=== PATIENT | male | born 1960 | race Caucasian/White ===

== ENCOUNTER 2016-11-06 16:58 | Inpatient (IN) | payer OTHER ==
[~2016-11-06] VITALS: Ht 182.9 cm; Wt 101.4 kg
[~2016-11-06 16:58] MED LIST: ALLO100 PO; ASPI81CH CHEW; CELE20TA PO; DULC10SU3 RECTAL; ENAL5TAB98 PO; FERR325T PO; LEVE500 PO; MAGO400T PO; METO-309 PO; PERI8.6T PO; PRAV40TA2 PO; PROC90TA PO; PROT40TA PO; PYRI50TA PO; VITA500T4 PO
[2016-11-06 17:01] VITALS: BP 117/72; PULSE 79; RESP 18; TEMP 98.7; O2SAT 96
[2016-11-06] MEDS ORDERED: SODIUM CHLOR 0.9% 1000 ML INJ 1,000 ML IV SCH (17:02)
--- NOTE | 2016-11-06 17:07 | PD ---
HPI Chief Complaint: Abdominal Pain Time Seen by Provider: 17:01 Travel History International Travel<30 days: No Contact w/Intl Traveler<30days: No Traveled to known affect area: No History of Present Illness HPI 56-year-old male [facility] patient with history of hypertension, previous stroke, [place], presents to the ER today because he is having right upper quadrant abdominal pains. He denies any nausea, vomiting, fevers, chest pains, shortness of breath, or any other symptoms. Modifying Factors: None Associated Signs & Symptoms: Right upper quadrant abdominal pain Risk Factors: None PFSH Past Medical History Autoimmune Disease: No Blood Disorders: No Anxiety: Yes Depression: Yes Heart Rhythm Problems: No Cancer: No Cardiovascular Problems: Yes High Cholesterol: Yes Chest Pain: No Congestive Heart Failure: No Cerebrovascular Accident: Yes (tia x 4, CVAX1, cerebral hemorrhage) Diabetes: No Diminished Hearing: No Endocrine: No Gastrointestinal Disorders: Yes GERD: Yes Genitourinary: Yes (CHRONIC RENAL INSUFF) Headaches: Yes Hepatitis: No Hiatal Hernia: No Hypertension: Yes (noncompliant with meds) Immune Disorder: No Implanted Vascular Access Dvce: No Kidney Stones: No Musculoskeletal: No Neurologic: Yes Psychiatric: Yes Reproductive: No Respiratory: No Immunizations Current: No Migraines: No Myocardial Infarction: No Renal Failure: No Seizures: Yes Sickle Cell Disease: No Thyroid Disease: No Ulcer: No PNEUMOCCOCAL Vaccine (Year): 2 Past Surgical History Abdominal Surgery: Yes (CHOLECYSTECTOMY) AICD: No Appendectomy: No Arteriovenous Shunt: No Cardiac Surgery: No Cholecystectomy: Yes Ear Surgery: No Endocrine Surgery: No Eye Surgery: No Genitourinary Surgery: No Insulin Pump: No Joint Replacement: No Neurologic Surgery: No Oral Surgery: No Pacemaker: No Thoracic Surgery: No Tonsillectomy: Yes Other Surgery: Yes (left wrist) Social History Alcohol Use: No Tobacco Use: No Substance Use: No Allergies-Medications (Allergen,Severity, Reaction): Coded Allergies: *MDRO Multi-Drug Resistant Organism (Verified Allergy, Unknown, 11/06/16) MRSA back wound 2009. Positive MRSA surveillance screen 01/2014. Negative MRSA surveillance screens 09/2014. MRSA PCR Screen negative 04/07/15. Reported Meds & Prescriptions Reported Meds & Active Scripts Active Magox (Magnesium Oxide) 400 Mg Tab 400 Mg PO DAILY Procardia XL (Nifedipine) 90 Mg Tab 90 Mg PO DAILY Celexa (Citalopram Hydrobromide) 20 Mg Tab 20 Mg PO DAILY Dulcolax Supp (Bisacodyl) 10 Mg Supp 10 Mg RECTAL DAILY PRN Keppra (Levetiracetam) 500 Mg Tab 500 Mg PO BID Lopressor (Metoprolol Tartrate) 50 Mg Tab 25 Mg PO BID Kimber-Colace (Sennosides-Docusate Sodium) 8.6-50 Mg Tab 2 Tab PO BID Pravastatin 40 Mg Tab 40 Mg PO DAILY Pyridoxine (Pyridoxine HCl) 50 Mg Tab 50 Mg PO DAILY Vasotec (Enalapril Maleate) 5 Mg Tab 5 Mg PO DAILY Protonix (Pantoprazole Sodium) 40 Mg Tab 40 Mg PO DAILY Ferrous Sulfate 325 Mg Tab 325 Mg PO DAILY Vitamin B-12 (Cyanocobalamin) 500 Mcg Tab 500 Mcg PO DAILY Zyloprim (Allopurinol) 100 Mg Tab 100 Mg PO DAILY Reported Tramadol (Tramadol HCl) 50 Mg Tab 50 Mg PO Q4H PRN Aspirin 81 Mg Chew 81 Mg CHEW DAILY Review of Systems Except as stated in HPI: all other systems reviewed are Neg Physical Exam Narrative GENERAL: Well-nourished, well-developed middle age white male patient in no acute distress. Awake, alert, oriented 3 and able to answer questions. SKIN: Warm and dry. HEAD: Normocephalic. EYES: No scleral icterus. No injection or drainage. NECK: Supple, trachea midline. CARDIOVASCULAR: Regular rate and rhythm without murmurs, gallops, or rubs. RESPIRATORY: Breath sounds equal bilaterally. No accessory muscle use. GASTROINTESTINAL: Abdomen soft, right upper quadrant tenderness without guarding or rebound, nondistended. MUSCULOSKELETAL: No cyanosis, or edema. BACK: Nontender without obvious deformity. No CVA tenderness. Data Data Last Documented VS Vital Signs Date Time Temp Pulse Resp B/P Pulse Ox O2 Delivery O2 Flow Rate FiO2 11/06/16 17:14 94 11/06/16 17:01 98.7 79 18 117/72 Orders Complete Blood Count With Diff (11/06/16 17:02) Comprehensive Metabolic Panel (11/06/16 17:02) Lipase (11/06/16 17:02) Prothrombin Time / Inr (Pt) (11/06/16 17:02) Act Partial Throm Time (Ptt) (11/06/16 17:02) Urinalysis - C+S If Indicated (11/06/16 17:02) Iv Access Insert/Monitor (11/06/16 17:02) Ecg Monitoring (11/06/16 17:02) Oximetry (11/06/16 17:02) Morphine Inj (Morphine Inj) (11/06/16 17:15) Ondansetron Inj (Zofran Inj) (11/06/16 17:15) Sodium Chlor 0.9% 1000 Ml Inj (Ns 1000 M (11/06/16 17:02) Sodium Chloride 0.9% Flush (Ns Flush) (11/06/16 17:15) Electrocardiogram (11/06/16 17:02) Chest, Single Ap (11/06/16 17:02) Lactic Acid Sepsis Protocol (11/06/16 18:23) Blood Culture (11/06/16 18:23) Piperacil-Tazo 4.5 Gm Premix (Zosyn 4.5 (11/06/16 18:23) Sodium Chlor 0.9% 1000 Ml Inj (Ns 1000 M (11/06/16 18:23) Ct Abd/Pel W/O Iv Contrast (11/06/16 17:02) Labs Laboratory Tests Test 11/06/16 17:30 White Blood Count 47.4 TH/MM3 Red Blood Count 4.92 MIL/MM3 Hemoglobin 13.7 GM/DL Hematocrit 42.6 % Mean Corpuscular Volume 86.6 FL Mean Corpuscular Hemoglobin 28.0 PG Mean Corpuscular Hemoglobin 32.3 % Concent Red Cell Distribution Width 15.9 % Platelet Count 383 TH/MM3 Mean Platelet Volume 8.2 FL Neutrophils (%) (Auto) 90.8 % Lymphocytes (%) (Auto) 1.9 % Monocytes (%) (Auto) 7.2 % Eosinophils (%) (Auto) 0.0 % Basophils (%) (Auto) 0.1 % Neutrophils # (Auto) 43.1 TH/MM3 Lymphocytes # (Auto) 0.9 TH/MM3 Monocytes # (Auto) 3.4 TH/MM3 Eosinophils # (Auto) 0.0 TH/MM3 Basophils # (Auto) 0.0 TH/MM3 CBC Comment AUTO DIFF Differential Total Cells 100 Counted Neutrophils % (Manual) 87 % Lymphocytes % 5 % Monocytes % 8 % Neutrophils # (Manual) 41.2 TH/MM3 Differential Comment FINAL DIFF MANUAL Platelet Estimate HIGH Platelet Morphology Comment NORMAL Red Cell Morphology Comment NORMAL Prothrombin Time 13.4 SEC Prothromb Time International 1.2 RATIO Ratio Activated Partial 30.8 SEC Thromboplast Time Sodium Level 134 MEQ/L Potassium Level 4.4 MEQ/L Chloride Level 100 MEQ/L Carbon Dioxide Level 23.5 MEQ/L Anion Gap 11 MEQ/L Blood Urea Nitrogen 19 MG/DL Creatinine 2.06 MG/DL Estimat Glomerular Filtration 33 ML/MIN Rate Random Glucose 126 MG/DL Calcium Level 8.8 MG/DL Total Bilirubin 1.2 MG/DL Aspartate Amino Transf 28 U/L (AST/SGOT) Alanine Aminotransferase 41 U/L (ALT/SGPT) Alkaline Phosphatase 159 U/L Total Protein 7.9 GM/DL Albumin 3.3 GM/DL Lipase 74 U/L [facility] Medical Decision Making Medical Screen Exam Complete: Yes Emergency Medical Condition: Yes Medical Record Reviewed: Yes Interpretation(s) Laboratory Tests Test 11/06/16 17:30 White Blood Count 47.4 TH/MM3 (4.0-11.0) Neutrophils (%) (Auto) 90.8 % (16.0-70.0) Lymphocytes (%) (Auto) 1.9 % (9.0-44.0) Neutrophils # (Auto) 43.1 TH/MM3 (1.8-7.7) Lymphocytes # (Auto) 0.9 TH/MM3 (1.0-4.8) Monocytes # (Auto) 3.4 TH/MM3 (0-0.9) Neutrophils % (Manual) 87 % (16-70) Lymphocytes % 5 % (9-44) Neutrophils # (Manual) 41.2 TH/MM3 (1.8-7.7) Platelet Estimate HIGH (NORMAL) Prothrombin Time 13.4 SEC (9.8-11.6) Activated Partial 30.8 SEC Thromboplast Time (24.3-30.1) Sodium Level 134 MEQ/L (136-145) Blood Urea Nitrogen 19 MG/DL (7-18) Creatinine 2.06 MG/DL (0.60-1.30) Estimat Glomerular Filtration 33 ML/MIN (>89) Rate Random Glucose 126 MG/DL (74-106) Total Bilirubin 1.2 MG/DL (0.2-1.0) Alkaline Phosphatase 159 U/L (45-117) Albumin 3.3 GM/DL (3.4-5.0) Last 24 hours Impressions Abdomen/Pelvis CT 11/06/16 1702 Signed Impressions: Service Date/Time: Sunday, November 06, 2016 18:37 - CONCLUSION: 1. Dilated gallbladder with cholelithiasis and inflammatory changes likely acute cholecystitis. 2. Bibasilar densities likely atelectasis. Trey Watt MD Differential Diagnosis Right upper quadrant abdominal painscholecystitis versus hepatitis versus gastroenteritis versus lower lobe pneumonia versus musculoskeletal Narrative Course Lab work indicates significant leukocytosis. IV antibiotics are initiated after cultures are done. Sepsis protocol initiated. CT is done showing what appears to be in acute cholecystitis. Case was briefly discussed with Dr. Souza who states that he suspect a cholangitis and that the patient is septic and that he will need IR drainage of the gallbladder, is not an appropriate surgical candidate at this time. He recommends medical admission as well. Case is discussed with Dr. Lawson of interventional radiology who agrees to come in to do an INR drainage. Aggregate critical care time was 30 minutes. Time to perform other separately billable procedures was not included in the critical care time. My time did not include minutes spent treating any other patients simultaneously or on activities that did not directly contribute to the patient's treatment. The services I provided to this patient were to treat and/or prevent clinically significant deterioration that could result in: Worsening sepsis, septic shock, I provided critical care services requiring my management, as noted below: Chart data review, documentation time, medication orders and management, vital sign assessments/reviewing monitor data, ordering and reviewing lab tests, ordering and interpreting/reviewing x-rays and diagnostic studies, care of the patient and discussion of the patient with the admitting physicians. Diagnosis Primary Impression: SEPSIS, UNSPECIFIED ORGANISM Additional Impressions: UNSPECIFIED ABDOMINAL PAIN ACUTE CHOLECYSTITIS Admitting Information Admitting Physician Requests: Admit Samuel Warren MD Nov 06, 2016 17:07
[2016-11-06] MEDS ORDERED: TRAM50TA PO (17:13)
[2016-11-06 17:14] VITALS: O2SAT 94
[2016-11-06] MEDS ORDERED: MORPHINE SULFATE 4 MG/ML INJ IV PUSH ONE (17:15)
[2016-11-06] MEDS ORDERED: SODIUM CHLORIDE 0.9% FLUSH 5 ML FLUSH IVF PRN (17:15)
[2016-11-06] MEDS ORDERED: ONDANSETRON HCL 4 MG/2 ML VIAL IVP ONE (17:15)
[2016-11-06 17:56] LABS: AUTOMATED NEUTROPHIL # 43.1 TH/MM3 (1.8-7.7); BASOPHIL % 0.1 % (0.0-2.0); HEMATOCRIT 42.6 % (39.0-51.0); LYMPH % 1.9 % (9.0-44.0); LYMPHOCYTE # 0.9 TH/MM3 (1.0-4.8); MEAN CELL VOLUME 86.6 FL (80.0-100.0); MEAN CORPUSCULAR HGB CONC 32.3 % (32.0-36.0); MONO % 7.2 % (0.0-8.0); NEUT % 90.8 % (16.0-70.0); PLATELET COUNT 383 TH/MM3 (150-450); RED BLOOD COUNT 4.92 MIL/MM3 (4.50-5.90); RED CELL DISTRIBUTION WIDTH 15.9 % (11.6-17.2); WHITE BLOOD COUNT 47.4 TH/MM3 (4.0-11.0)
[2016-11-06 17:58] LABS: HEMO FLAGS AUTO DIFF
--- NOTE | 2016-11-06 18:01 | RADRPT ---
EXAM DATE/TIME: 11/06/2016 17:08 [facility] COMPARISON: CHEST SINGLE AP, May 21, 2016, 15:40. INDICATIONS : Short of breath. MEDICAL HISTORY : Hypertension. CVA. SURGICAL HISTORY : None. ENCOUNTER: Initial ACUITY: 1 day PAIN SCORE: Non-responsive. LOCATION: Bilateral chest FINDINGS: The lungs are underaerated but clear. Heart and pulmonary vascularity are normal. Portions of the [place] skeleton visualized are unremarkable. CONCLUSION: Underaerated otherwise negative. Pedrito Snow MD FACR on November 06, 2016 at 17:51 Board Certified Radiologist. This report was verified electronically.
[2016-11-06 18:07] LABS: APTT (PATIENT) 30.8 SEC (24.3-30.1); INTERNATIONAL NORMALIZED RATIO 1.2 RATIO; PROTHROMBIN TIME - PATIENT 13.4 SEC (9.8-11.6)
[2016-11-06 18:19] LABS: ANION GAP 11 MEQ/L (5-15); AST (GOT) 28 U/L (15-37); BICARBONATE 23.5 MEQ/L (21.0-32.0); BLOOD UREA NITROGEN 19 MG/DL (7-18); CHLORIDE 100 MEQ/L (98-107); GLOMERULAR FILTRATION RATE 33 ML/MIN (>89); POTASSIUM 4.4 MEQ/L (3.5-5.1); SODIUM (NA) 134 MEQ/L (136-145)
[2016-11-06 18:23] LABS: ALKALINE PHOSPHATASE 159 U/L (45-117); ALT (GPT) 41 U/L (12-78); TOTAL BILIRUBIN ADULT 1.2 MG/DL (0.2-1.0)
[2016-11-06] MEDS ORDERED: PIPERACIL-TAZO 4.5 GM PREMIX 100 ML IV STA (18:23)
[2016-11-06] MEDS ORDERED: SODIUM CHLOR 0.9% 1000 ML INJ 1,000 ML IV ONE (18:23)
[2016-11-06 18:30] LABS: NEUTROPHIL # MANUAL DIFF 41.2 TH/MM3 (1.8-7.7); POLYS (SEG NEUTROPHILS) 87 % (16-70); WBC DIFF SAMPLE 100
[2016-11-06 18:31] LABS: PLATELET ESTIMATE SMEAR HIGH (NORMAL); PLATELET MORPHOLOGY NORMAL (NORMAL); SCAN/DIFF FINAL DIFF MANUAL
--- NOTE | 2016-11-06 18:56 | RADRPT ---
EXAM DATE/TIME: 11/06/2016 18:37 [facility] COMPARISON: CT ABDOMEN & PELVIS W/O CONTRAST, March 19, 2013, 12:50. INDICATIONS : Right upper quadrant pain. ORAL CONTRAST: No oral contrast ingested. RADIATION DOSE: 17.47 CTDIvol (mGy) MEDICAL HISTORY : Cardiovascular disease. Hypertension. Renal insufficiency. SURGICAL HISTORY : Cholecystectomy. ENCOUNTER: Initial ACUITY: 1 day PAIN SCALE: Non-responsive LOCATION: abdomen/pelvis TECHNIQUE: Volumetric scanning of the abdomen and pelvis was performed. Using automated exposure control and ad justment of the mA and/or kV according to patient size, radiation dose was kept as low as reasonably achievable to obtain optimal diagnostic quality images. FINDINGS: LOWER LUNGS: Minimal bibasilar densities. LIVER: Homogeneous density without lesion. There is no dilation of the biliary tree. Dilated gallbladder wi th inflammatory changes. A few gallstones are seen. There is pericholecystic fluid SPLEEN: Normal size without lesion. PANCREAS: Within normal limits. KIDNEYS: Normal in size and shape. There is no mass, stone, or hydronephrosis. ADRENAL GLANDS: Within normal limits. VASCULAR: There is no aortic aneurysm. BOWEL/MESENTERY: The stomach, small bowel, and colon demonstrate no acute abnormality. There is no free intraperitone al air or fluid. ABDOMINAL WALL: Within normal limits. RETROPERITONEUM: There is no lymphadenopathy. BLADDER: No wall thickening or mass. REPRODUCTIVE: Within normal limits. INGUINAL: There is no lymphadenopathy or hernia. MUSCULOSKELETAL: Within normal limits for patient age. CONCLUSION: 1. Dilated gallbladder with cholelithiasis and inflammatory changes likely acute cholecystitis. 2. Bibasilar densities likely atelectasis. Trey Watt MD on November 06, 2016 at 18:52 Board Certified Radiologist. This report was verified electronically.
[2016-11-06] MEDS ORDERED: DEXTROSE 50% IN WATER 50 ML VIAL(D50) IV PUSH PRN (19:30)
[2016-11-06] MEDS ORDERED: RESP: ALBUTEROL 2.5 MG/IPRATROPIUM 0.5 MG NEB (PRN) INH ×2 (19:30→21:30)
[2016-11-06 20:00] VITALS: BP 126/74; PULSE 68; RESP 16; O2SAT 96
[2016-11-06] MEDS ORDERED: fentaNYL CITRATE 250 MCG/5 ML AMP ONE (21:20)
[2016-11-06] MEDS ORDERED: MIDAZOLAM HCL 5 MG/5 ML VIAL ONE (21:20)
--- NOTE | 2016-11-06 21:24 | HHI.PR ---
Subjective Remarks I have discussed the case with Dr. Souza. In brief, this 56yM with leukocytosis, altered mental status, severe sepsis likely from cholangitis with radiographic evidence suggesting this. He is starting to become altered which is likely metabolic encephalopathy from sepsis. It is medically necessary that his obstruction is drained tonight, and thus, it is my opinion that percutaneous cholecystostomy tube placement is urgently medically necessary tonight, even if he is not medically capacitated to receive informed consent. Yonatan Novak MD Nov 06, 2016 21:24
--- NOTE | 2016-11-06 21:24 | HHI.HP ---
[facility] Service Critical Care Medicine Primary Care Physician Aguila Santacruz MD Admission Diagnosis sepsis/acute cholecystitis/cholangitis Diagnosis: Chief Complaint: abdominal pain Travel History International Travel<30 Days: No Contact w/Intl Traveler <30 Da: No Traveled to Known Affected Are: No History of Present Illness This is a 56-year-old male who was brought in from the detention with right upper quadrant abdominal pain. He endorses this abdominal pain as crampy, worse with food. He denied nausea, vomiting, diarrhea, constipation, changes in stool. Fevers, chills, chest pain, shortness of breath. He is not had anything to eat since yesterday. He is slightly somnolent on my evaluation and a very poor historian so additional information is very difficult to obtain. He does have a CT abdomen and pelvis which demonstrates significant gallbladder thickening and concern for cholangitis. Dr. Souza was consulted and agreed with that assessment. IR has been consulted to place for percutaneous cholecystostomy tube. [facility] medicine is consulted to evaluate and manage his sepsis. Review of Systems ROS Limitations: Clinical Condition, Altered Mental Status, Poor Historian Past Family Social History Allergies: Coded Allergies: *MDRO Multi-Drug Resistant Organism (Verified Allergy, Unknown, 11/06/16) MRSA back wound 2009. Positive MRSA surveillance screen 01/2014. Negative MRSA surveillance screens 09/2014. MRSA PCR Screen negative 04/07/15. Past Medical History The patient is somnolent and slightly altered. A complete past medical history is unobtainable. Per chart review: Anxiety Depression Hyperlipidemia TIA 4 CVA 1 Cerebral hemorrhage GERD Chronic renal insufficiency, unknown stage Headaches Hypertension with medication noncompliance Seizures Past Surgical History The patient's altered mental status and clinical condition make a complete past surgical history unobtainable. Per chart review: The patient reportedly has a prior history of a cholecystectomy. However, CT imaging demonstrates the patient has a gallbladder. Tonsillectomy Left wrist surgery Reported Medications Patient is unable to provide me a complete home medication list due to his altered mental status. Per chart review: Magox (Magnesium Oxide) 400 Mg Tab 400 Mg PO DAILY Procardia XL (Nifedipine) 90 Mg Tab 90 Mg PO DAILY Celexa (Citalopram Hydrobromide) 20 Mg Tab 20 Mg PO DAILY Dulcolax Supp (Bisacodyl) 10 Mg Supp 10 Mg RECTAL DAILY PRN Keppra (Levetiracetam) 500 Mg Tab 500 Mg PO BID Lopressor (Metoprolol Tartrate) 50 Mg Tab 25 Mg PO BID Kimber-Colace (Sennosides-Docusate Sodium) 8.6-50 Mg Tab 2 Tab PO BID Pravastatin 40 Mg Tab 40 Mg PO DAILY Pyridoxine (Pyridoxine HCl) 50 Mg Tab 50 Mg PO DAILY Vasotec (Enalapril Maleate) 5 Mg Tab 5 Mg PO DAILY Protonix (Pantoprazole Sodium) 40 Mg Tab 40 Mg PO DAILY Ferrous Sulfate 325 Mg Tab 325 Mg PO DAILY Vitamin B-12 (Cyanocobalamin) 500 Mcg Tab 500 Mcg PO DAILY Zyloprim (Allopurinol) 100 Mg Tab 100 Mg PO DAILY Reported Tramadol (Tramadol HCl) 50 Mg Tab 50 Mg PO Q4H PRN Aspirin 81 Mg Chew 81 Mg CHEW DAILY Active Ordered Medications See MAR Family History The patient is unable to provide for me if family history due to his altered mental status. It is unlikely to be contributory to his acute illness. Social History A complete social history is unobtainable secondary to the patient's altered mental status. Per chart review: Denied tobacco, alcohol, drugs of abuse. Physical Exam Vital Signs Vital Signs Date Time Temp Pulse Resp B/P Pulse Ox O2 Delivery O2 Flow Rate FiO2 11/06/16 17:14 94 11/06/16 17:01 98.7 79 18 117/72 96 Physical Exam GENERAL: Middle-aged male, lying in bed, mild to moderate distress due to abdominal pain HEENT: Normocephalic. Atraumatic. Pupils equal, round, conjugate, reactive. Mucous membranes are dry. NECK: Obese neck. JVD unable to assess. Trachea is midline. CHEST: Mildly labored respirations. Equal chest rise. Clear to auscultation. CARDIOVASCULAR: Normal rate, regular rhythm. No appreciable murmurs. ABDOMEN: obese, soft, significantly tender to palpation over RUQ. +leo's sign. no guarding. no peritoneal signs. MUSCULOSKELETAL: 1+ peripheral edema. Distal pulses 2+. NEUROLOGICAL: RASS -1. Somnolent but arousable. Follows commands. Laboratory Laboratory Tests Test 11/06/16 11/06/16 17:30 19:35 White Blood Count 47.4 Red Blood Count 4.92 Hemoglobin 13.7 Hematocrit 42.6 Mean Corpuscular Volume 86.6 Mean Corpuscular Hemoglobin 28.0 Mean Corpuscular Hemoglobin 32.3 Concent Red Cell Distribution Width 15.9 Platelet Count 383 Mean Platelet Volume 8.2 Neutrophils (%) (Auto) 90.8 Lymphocytes (%) (Auto) 1.9 Monocytes (%) (Auto) 7.2 Eosinophils (%) (Auto) 0.0 Basophils (%) (Auto) 0.1 Neutrophils # (Auto) 43.1 Lymphocytes # (Auto) 0.9 Monocytes # (Auto) 3.4 Eosinophils # (Auto) 0.0 Basophils # (Auto) 0.0 CBC Comment AUTO DIFF Differential Total Cells 100 Counted Neutrophils % (Manual) 87 Lymphocytes % 5 Monocytes % 8 Neutrophils # (Manual) 41.2 Differential Comment FINAL DIFF MANUAL Platelet Estimate HIGH Platelet Morphology Comment NORMAL Red Cell Morphology Comment NORMAL Prothrombin Time 13.4 Prothromb Time International 1.2 Ratio Activated Partial 30.8 Thromboplast Time Sodium Level 134 Potassium Level 4.4 Chloride Level 100 Carbon Dioxide Level 23.5 Anion Gap 11 Blood Urea Nitrogen 19 Creatinine 2.06 Estimat Glomerular Filtration 33 Rate Random Glucose 126 Calcium Level 8.8 Total Bilirubin 1.2 Aspartate Amino Transf 28 (AST/SGOT) Alanine Aminotransferase 41 (ALT/SGPT) Alkaline Phosphatase 159 Total Protein 7.9 Albumin 3.3 Lipase 74 Lactic Acid Level 1.1 Date/Time Procedure Status Source Growth 11/06/16 19:35 Aerobic Blood Culture Received Blood Peripheral Pending 11/06/16 19:35 Anaerobic Blood Culture Received Blood Peripheral Pending Result Diagram: 11/06/16 1730 11/06/16 1730 Assessment and Plan Assessment and Plan Assessment: This is a 56-year-old male with probable cholangitis and sepsis. The fact that he is not tachycardic is likely due to the fact that he is taking beta blockers. He will go for urgent cholecystostomy tube placement. His mental status may likely be due to sepsis. I'm hopeful that if we successfully drain his cholangitis, he will rapidly improve. For now though he remains critically ill, as cholangitis has a high mortality rate and given the patient' s comorbidities, I'm very concerned may decompensate. Plan by systems: Neurologic: Metabolic encephalopathy Likely secondary to sepsis Frequent neuro checks Avoid long-acting sedating meds Respiratory: Atelectasis Incentive spirometer to bedside Wean oxygen by nasal cannula for goal SPO2 greater than 90% Cardiovascular: Sepsis Maintenance fluids LR 150 cc an hour Maintaining map greater than 65 without the need for vasopressors currently Renal: Acute kidney injury Place Marquez for accurate I's and O's Kidney injury is likely prerenal secondary to sepsis -- Strict I/Os FEN/GI: Acute cholangitis Obesity Intravascular hypovolemia Maintenance fluids as above Nothing by mouth Urgent cholecystostomy tube placement Daily [facility] General surgery consulted: Dr. Souza Heme/ID: Leukocytosis Sepsis Cholangitis Zosyn 3.375 g IV every 8 Follow-up blood cultures Daily CBC Endocrine: Hyperglycemia of critical illness -- SSI, every 6 hours, medium scale Prophylaxis: GI Prophylaxis Protonix 40 mg IV daily 24 hours DVT Prophylaxis -- SCDs Subcutaneous heparin 5000 every 8 Lines: Peripheral IVs Marquez Dispo: Admit to the ICU. This patient remains critically ill with one or more organ systems which are or may become a threat to life. I have spent in excess of 33 minutes discontinuously in the care and management of this patient. This time is exclusive of procedures, and includes, but is not limited to, evaluation of the patient, review of the medical record, discussions with family, consultants, nursing staff, or respiratory therapy, and documentation in the medical record. Code Status Full Code Yonatan Novak MD Nov 06, 2016 21:24
[2016-11-06] MEDS ORDERED: HYDROmorphone HCL PF 1 MG/ML VIAL IV PRN (21:30)
[2016-11-06] MEDS ORDERED: ACETAMINOPHEN 325 MG TAB PO PRN (21:30)
[2016-11-06] MEDS ORDERED: ONDANSETRON HCL 4 MG/2 ML VIAL IV PRN (21:30)
[2016-11-06] MEDS ORDERED: MISCELLANEOUS NURSING INFORMATION XX SCH (21:30)
[2016-11-06] MEDS ORDERED: CHLORHEXIDINE GLUCONATE 2 % 1 PACK (2 CLOTHS) TOP PRN (21:30)
[2016-11-06] MEDS ORDERED: SODIUM CHLORIDE 0.9% FLUSH 5 ML FLUSH IV FLUSH PRN (21:30)
--- NOTE | 2016-11-06 21:32 | PD.RAD ---
Radiology Note Consult for cholecystostomy tube from ED on this 56 year old gentleman with leucocytosis, fever and confusion. CT abdomen and pelvis from earlier this evening shows abnormal gallbladder with nitrogen gallstones, pericholecystic stranding and gallbladder distention concerning for acute cholecystitis. Surgery felt patient was not a viable surgical candidate and asked that IR be consulted. Patient is disoriented x 3. Unable to consent for himself and unable to contact family member or POA. Discussed with ED and Dr. Mathwes. Clinically, Dr. Mathews feels the procedure is medically necessary considering the pts. clinical presentation. Agree from a radiographic standpoint. Will proceed as medically necessary Eron Lawson MD Nov 06, 2016 21:32
[2016-11-06] MEDS ORDERED: LEVOFLOXACIN 500 MG PREMIX INJ 100 ML IV ONE (21:37)
[2016-11-06] MEDS: RESP: ALBUTEROL 2.5 MG/IPRATROPIUM 0.5 MG NEB (SCH) INH (22:00)
--- NOTE | 2016-11-06 22:08 | PD.RAD ---
Post Procedure Progress Note Pre Procedure Diagnosis: (1) Acute cholecystitis due to biliary calculus Post Procedure Diagnosis: (1) Acute cholecystitis due to biliary calculus Procedure Date: Nov 06, 2016 Supervising Radiologist: Eron Lawson Proceduralist/Assist: Octavia Beckman, RT(R)(), Isela Galarza RT(R) Anesthesia: Local, Analgesia, Conscious Sedation Plan of Activity Patient to Unit: Other (ED) Patient Condition: Fair See PACS Report for procedural detail/treatment Drainage Procedure Procedure 1 Imaging Guidance: Fluoroscopy, Ultrasound Procedure Type: Cholecystostomy Procedure: Placement Kazakh: 7 Drainage: [place] drainage Fluid Description: Bilious (dark and thick) Eron Lawson MD Nov 06, 2016 22:08
[2016-11-06 23:03] VITALS: BP 126/76; PULSE 74; RESP 16; O2SAT 95
[2016-11-06] MEDS: HEPARIN SODIUM - SQ 10,000 UNITS/ML VIAL SQ SCH (23:12)
[2016-11-06 23:39] LABS: BLOOD, URINE TRACE (NEG); COMMENT (UR) CULT NOT INDICATED; CULTURE IF INDICATED CULT NOT INDICATED; GLUCOSE,URINE NEG (NEG); KETONE, URINE NEG (NEG); MUCUS URINE FEW /lpf (OCC); NITRITE,URINE NEG (NEG); SQUAMOUS EPITHELIAL CELL URINE <1 /hpf (0-5); URINE COLOR YELLOW (YELLW/STRAW)
[2016-11-07] VITALS (18 sets, daily range): BP systolic 96–124; BP diastolic 51–80; PULSE 65–85; RESP 16–26; TEMP 98.7; O2SAT 93–99
[2016-11-07] MEDS: INSULIN NovoLIN REGULAR SUPPLEMENTAL SCALE SQ SCH ×4 (00:19→18:00)
[2016-11-07] MEDS: RESP: ALBUTEROL 2.5 MG/IPRATROPIUM 0.5 MG NEB (SCH) INH ×4 (03:52→20:50)
[2016-11-07] MEDS: CHLORHEXIDINE GLUCONATE 2 % 1 PACK (2 CLOTHS) TOP SCH (04:00)
[2016-11-07] MEDS: LACTATED RINGER'S 1000 ML INJ 1,000 ML IV SCH ×2 (05:15→11:55)
[2016-11-07] MEDS ORDERED: LACTATED RINGER'S 1000 ML INJ 1,000 ML IV ONE (05:15)
[2016-11-07 05:17] LABS: HEMATOCRIT 35.4 % (39.0-51.0); MEAN CELL VOLUME 87.2 FL (80.0-100.0); MEAN CORPUSCULAR HEMOGLOBIN 28.1 PG (27.0-34.0); MEAN CORPUSCULAR HGB CONC 32.2 % (32.0-36.0); PLATELET COUNT 279 TH/MM3 (150-450); RED BLOOD COUNT 4.06 MIL/MM3 (4.50-5.90); RED CELL DISTRIBUTION WIDTH 16.1 % (11.6-17.2); WHITE BLOOD COUNT 36.5 TH/MM3 (4.0-11.0)
[2016-11-07 05:22] LABS: REVIEW FLAG FINAL
[2016-11-07 05:35] LABS: POTASSIUM 4.5 MEQ/L (3.5-5.1)
[2016-11-07] MEDS: PIPERACIL-TAZO 3.375 GM PREMIX 50 ML IV SCH ×3 (06:30→19:46)
[2016-11-07] MEDS: HEPARIN SODIUM - SQ 10,000 UNITS/ML VIAL SQ SCH ×3 (06:30→19:46)
[2016-11-07] MEDS: SODIUM CHLORIDE 0.9% FLUSH 5 ML FLUSH IV FLUSH SCH ×2 (08:49→19:47)
[2016-11-07] MEDS: DOCUSATE SODIUM 50 MG/SENNA 8.6 MG TAB PO SCH ×2 (08:49→19:47)
--- NOTE | 2016-11-07 17:59 | HHI.CCPN ---
Subjective Remarks/Hospital Course 11/06: This is a 56-year-old male who [facility] with right upper quadrant abdominal pain. He endorses this abdominal pain as crampy , worse with food. He denied nausea, vomiting, diarrhea, constipation, changes in stool. Fevers, chills, chest pain, shortness of breath. He is not had anything to eat since yesterday. He is slightly somnolent on my evaluation and a very poor historian so additional information is very difficult to obtain. He does have a CT abdomen and pelvis which demonstrates significant gallbladder thickening and concern for cholangitis. Dr. Souza was consulted and agreed with that assessment. IR has been consulted to place for percutaneous cholecystostomy tube. [facility] medicine is consulted to evaluate and manage his sepsis. 11/07: Underwent percutaneous cholecystostomy tube placement by interventional radiology on 11/06 . Resting comfortably. His abdominal pain seems to be improving. On 2 L nasal cannula. Objective Vital Signs Date Time Temp Pulse Resp B/P Pulse Ox O2 Delivery O2 Flow Rate FiO2 11/07/16 16:00 68 11/07/16 10:43 95 Nasal Cannula 2.00 11/07/16 08:00 98.7 26 96/51 Result Diagram: 11/07/16 0455 11/07/16 0455 Imaging Last Impressions Abdomen/Pelvis CT 11/06/16 1702 Signed Impressions: Service Date/Time: Sunday, November 06, 2016 18:37 - CONCLUSION: 1. Dilated gallbladder with cholelithiasis and inflammatory changes likely acute cholecystitis. 2. Bibasilar densities likely atelectasis. Trey Watt MD Objective Remarks GENERAL: Middle-aged male, lying in bed, not in any acute distress HEENT: Normocephalic. Atraumatic. Pupils equal, round, conjugate, reactive. Mucous membranes moist NECK: Obese neck. JVD unable to assess. Trachea is midline. CHEST: Mildly labored respirations. Equal chest rise. Clear to auscultation. CARDIOVASCULAR: Normal rate, regular rhythm. No appreciable murmurs. ABDOMEN: obese, soft, significantly tender to palpation over RUQ. +leo's sign. no guarding. no peritoneal signs. MUSCULOSKELETAL: 1+ peripheral edema. Distal pulses 2+. NEUROLOGICAL: Awake and alert, following commands. A/P Assessment and Plan Assessment: This is a 56-year-old male with probable cholangitis/acute cholecystitis and sepsis. The fact that he is not tachycardic is likely due to the fact that he is taking beta blockers. He underwent urgent cholecystostomy tube placement. Plan by systems: Neurologic: Metabolic encephalopathy Likely secondary to sepsis Frequent neuro checks Avoid long-acting sedating meds Respiratory: Atelectasis Incentive spirometer to bedside Wean oxygen by nasal cannula for goal SPO2 greater than 90% Cardiovascular: Sepsis Maintenance fluids D5LR 150 cc an hour Maintaining map greater than 65 without the need for vasopressors currently Renal: Acute kidney injury Place Marquez for accurate I's and O's Kidney injury is likely prerenal secondary to sepsis -- Strict I/Os FEN/GI: Acute cholangitis Obesity Intravascular hypovolemia Maintenance fluids as above Nothing by mouth s/p Urgent cholecystostomy tube placement by IR Daily BMP General surgery consulted: D/W Dr. Souza on 11/07. He will eventually need cholecystectomy. Heme/ID: Leukocytosis Sepsis Cholangitis Zosyn 3.375 g IV every 8 Follow-up blood cultures Daily CBC Endocrine: Hyperglycemia of critical illness -- SSI, every 6 hours, medium scale Prophylaxis: GI Prophylaxis Protonix 40 mg IV daily 24 hours DVT Prophylaxis -- SCDs Subcutaneous heparin 5000 every 8 Lines: Peripheral IVs Marquez We'll consult and transfer to hospitalist service in a.m. for further medical management. Critical care will be signing off. Please reconsult if needed. Other recommendations per general surgery. Mateo Camilo MD Nov 07, 2016 17:59
[2016-11-07] MEDS: DEXTROSE 5%-LACTATED RING INJ 1,000 ML IV SCH (18:00)
--- NOTE | 2016-11-07 18:02 | MB ---
cc: CORAL PATEL M.D. DATE OF CONSULTATION 11/07/16 REASON FOR CONSULTATION Cholangitis. HISTORY OF PRESENT ILLNESS The patient is a 56-year-old male who was brought in from a care home with right upper quadrant abdominal pain that has occurred for the last few days, according to the patient. This was reported as crampy and worse with food. He denies any nausea, vomiting, diarrhea or changes in bowel habits. He also denies any fever or chills. The patient was slightly confused on admission and CT demonstrated significant gallbladder wall thickening with concern for cholangitis. We have been called for management of this patient, but due to his extremely high white count I have concern that the patient was suffering from cholangitis and would need immediate percutaneous cholecystostomy tube. REVIEW OF SYSTEMS Limited due to altered mental status as he is a poor historian. PAST MEDICAL HISTORY 1. 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 Screening surveillance for MRSA was negative in March. Per the patient's previous chart 2. History of anxiety, depression, 3. CVA, TIA x4 4. Hyperlipidemia, 5. GE reflux disease, 6. Chronic renal insufficiency, 7. Headaches 8. Hypertension MEDICATIONS Reported medications are listed in the patient's MAR including 1. Magnesium oxide 400 mg q. day, 2. Procardia 90 mg p.o. daily, 3. Celexa 20 mg daily, 4. Dulcolax 10 mg per rectum as needed, 5. Keppra 500 mg p.o. b.i.d., 6. Lopressor 25 mg b.i.d., 7. Kimber-Colace 2 tablets b.i.d., 8. Pravastatin 40 mg daily 9. Pyridoxine 50 mg daily. 10. Vasotec 5 mg daily, 11. Protonix 40 mg p.o. q. day, 12. Ferrous sulfate 325 mg q. day, 13. Vitamin B12 100 mcg daily 14. Allopurinol 100 mg p.o. daily. 15. Tramadol 50 mg p.o. q.4 h p.r.n. 16. Aspirin 81 mg q. daily. FAMILY HISTORY AND SOCIAL HISTORY Not obtainable due to some confusion. The patient does deny alcohol or tobacco use. PHYSICAL EXAMINATION GENERAL: A male who is somewhat pale. VITAL SIGNS: BP 124/73, pulse 77, respirations 25, 94% saturation on 2 liters nasal cannula HEENT: Sclerae anicteric. Pupils reactive. NECK: Supple. CHEST: Clear to auscultation. CARDIAC: Regular rate and rhythm. ABDOMEN: Soft with some tenderness near the cholecystostomy tube site. There is some bloody draining material in the cholecystostomy tube. The rest of the abdominal exam is benign. The patient reports no other abdominal pain. NEUROLOGIC: Pulses are present. The patient has some slurred speech. He reports he has no residual from his CVA. He is able to lift both arms but has some weakness on the right. LABORATORY DATA WBCs 47.4 down to 36.5 this morning, platelets are 279,000, hemoglobin 11.4. Electrolytes demonstrate BUN and creatinine of 23 and 1.79, bilirubin is 1.2, AST and ALT are normal, alkaline phosphatase is elevated at 159. IMAGING STUDIES CT findings are as indicated above with no dilatation of the biliary tree and dilated gallbladder with inflammatory changes with a few gallstones and pericholecystic fluid. ASSESSMENT Acute cholecystitis with cholangitis. Patient with early sepsis. He has been given fluid resuscitation and is now stable. I had recommended the patient undergo interventional radiology placement of a cholecystostomy tube so that the patient's resuscitation may be completed and he will be stabilized. The patient will likely require cholecystectomy in the next week or so once he has been optimized. I discussed this with the patient this morning and he is in agreement. Thank you, Dr. Lawson, for performing the placement of the cholecystostomy tube expeditiously as the patient is rapidly improving. We will follow with you. MD HILARY Do/ /4:54 PM /5:43 PM
--- NOTE | 2016-11-07 21:10 | EKG ---
Date Performed: 11/06/2016 Time Performed: 18:04:42 PTAGE: 56 years EKG: Sinus rhythm NONSPECIFIC T-WAVE ABNORMALITY BORDERLINE ECG PREVIOUS TRACING : 05/21/2016 17.07 DOCTOR: Christos Baker Interpretating Date/Time 11/07/2016 21:04:51
[2016-11-08] VITALS (14 sets, daily range): BP systolic 124; BP diastolic 72; PULSE 66–86; RESP 25; TEMP 97.8; O2SAT 93–98
[2016-11-08] MEDS: DEXTROSE 5%-LACTATED RING INJ 1,000 ML IV SCH (02:00)
[2016-11-08] MEDS: RESP: ALBUTEROL 2.5 MG/IPRATROPIUM 0.5 MG NEB (SCH) INH ×4 (03:25→21:34)
[2016-11-08] MEDS: CHLORHEXIDINE GLUCONATE 2 % 1 PACK (2 CLOTHS) TOP SCH (04:00)
[2016-11-08] MEDS: PIPERACIL-TAZO 3.375 GM PREMIX 50 ML IV SCH ×3 (05:18→22:00)
[2016-11-08] MEDS: HEPARIN SODIUM - SQ 10,000 UNITS/ML VIAL SQ SCH ×3 (05:18→21:17)
[2016-11-08] MEDS: INSULIN NovoLIN REGULAR SUPPLEMENTAL SCALE SQ SCH ×4 (05:19→18:00)
--- NOTE | 2016-11-08 06:59 | RADRPT ---
EXAM DATE/TIME: 11/08/2016 05:24 [facility] COMPARISON: CHEST SINGLE AP, November 06, 2016, 17:08. INDICATIONS : Shortness of breath. MEDICAL HISTORY : Hypertension. Cardiovascular disease. SURGICAL HISTORY : None. ENCOUNTER: Subsequent ACUITY: 3 days PAIN SCORE: Non-responsive. LOCATION: Bilateral chest FINDINGS: Mild left lung base atelectasis and/or infiltrate is seen. Heart and mediastinum are unremarkable for technique. CONCLUSION: Mild left lung base atelectasis and/or infiltrate is seen. Faiza Vasquez MD on November 08, 2016 at 6:57 Board Certified Radiologist. This report was verified electronically.
[2016-11-08] MEDS: DOCUSATE SODIUM 50 MG/SENNA 8.6 MG TAB PO SCH ×2 (08:24→21:16)
[2016-11-08 08:39] LABS: AUTOMATED NEUTROPHIL # 9.5 TH/MM3 (1.8-7.7); BASOPHIL % 0.2 % (0.0-2.0); EOSINOPHIL # 0.1 TH/MM3 (0-0.4); EOSINOPHIL % 0.7 % (0.0-4.0); HEMATOCRIT 30.5 % (39.0-51.0); HEMO FLAGS DIFF FINAL; LYMPH % 9.6 % (9.0-44.0); LYMPHOCYTE # 1.1 TH/MM3 (1.0-4.8); MEAN CELL VOLUME 86.1 FL (80.0-100.0); MEAN CORPUSCULAR HGB CONC 32.5 % (32.0-36.0); MONO % 7.1 % (0.0-8.0); NEUT % 82.4 % (16.0-70.0); PLATELET COUNT 203 TH/MM3 (150-450); RED BLOOD COUNT 3.54 MIL/MM3 (4.50-5.90); RED CELL DISTRIBUTION WIDTH 15.8 % (11.6-17.2); WHITE BLOOD COUNT 11.6 TH/MM3 (4.0-11.0)
[2016-11-08] MEDS: SODIUM CHLORIDE 0.9% FLUSH 5 ML FLUSH IV FLUSH SCH ×2 (09:00→21:16)
[2016-11-08 09:05] LABS: ALKALINE PHOSPHATASE 212 U/L (45-117); ALT (GPT) 82 U/L (12-78); ANION GAP 8 MEQ/L (5-15); AST (GOT) 65 U/L (15-37); BICARBONATE 25.8 MEQ/L (21.0-32.0); BLOOD UREA NITROGEN 19 MG/DL (7-18); CHLORIDE 108 MEQ/L (98-107); GLOMERULAR FILTRATION RATE 44 ML/MIN (>89); POTASSIUM 3.5 MEQ/L (3.5-5.1); SODIUM (NA) 142 MEQ/L (136-145); TOTAL BILIRUBIN ADULT 0.5 MG/DL (0.2-1.0)
--- NOTE | 2016-11-08 12:12 | HHI.PR ---
Subjective Subjective Notes Resting in bed Combative during my assessment Objective Vitals/I&O Vital Signs Date Time Temp Pulse Resp B/P Pulse Ox O2 Delivery O2 Flow Rate FiO2 11/08/16 10:00 68 11/08/16 09:36 98 Nasal Cannula 2.00 11/07/16 08:00 98.7 26 96/51 Labs Laboratory Tests Test 11/08/16 08:16 White Blood Count 11.6 Red Blood Count 3.54 Hemoglobin 9.9 Hematocrit 30.5 Mean Corpuscular Volume 86.1 Mean Corpuscular Hemoglobin 28.0 Mean Corpuscular Hemoglobin 32.5 Concent Red Cell Distribution Width 15.8 Platelet Count 203 Mean Platelet Volume 8.0 Neutrophils (%) (Auto) 82.4 Lymphocytes (%) (Auto) 9.6 Monocytes (%) (Auto) 7.1 Eosinophils (%) (Auto) 0.7 Basophils (%) (Auto) 0.2 Neutrophils # (Auto) 9.5 Lymphocytes # (Auto) 1.1 Monocytes # (Auto) 0.8 Eosinophils # (Auto) 0.1 Basophils # (Auto) 0.0 CBC Comment DIFF FINAL Differential Comment Sodium Level 142 Potassium Level 3.5 Chloride Level 108 Carbon Dioxide Level 25.8 Anion Gap 8 Blood Urea Nitrogen 19 Creatinine 1.64 Estimat Glomerular Filtration 44 Rate Random Glucose 134 Calcium Level 7.8 Total Bilirubin 0.5 Aspartate Amino Transf 65 (AST/SGOT) Alanine Aminotransferase 82 (ALT/SGPT) Alkaline Phosphatase 212 Total Protein 5.6 Albumin 2.1 Date/Time Procedure Status Source Growth 11/06/16 19:35 Aerobic Blood Culture - Preliminary Resulted Blood Peripheral NO GROWTH IN 2 DAYS 11/06/16 19:35 Anaerobic Blood Culture - Preliminary Resulted Blood Peripheral NO GROWTH IN 2 DAYS Cardiovascular: Regular Lungs: Clear Abdomen: Other (Amol tube with bile/bloody drainage in collection bag ) Extremities: No edema A/P Assessment and Plan 56 year old male with cholangitis with cholecystectomy tube -Continue amol tube to gravity -Start clears -Continue Zosyn -Improvement in WBC -Discussed with Dr. Souza---may plan for lap amol early next week \ Attending note Much more cooperative this afternoon Abdomen soft, tender RUQ and around drain; serosanguinous drainage in the drain bag Advance diet/IVF to KVO Transfer to floor The exam, history, and the medical decision-making described in the above note were completed with the assistance of the mid-level provider. I reviewed and agree with the findings presented. I attest that I had a [id number] encounter with the patient on the same day, and personally performed and documented my assessment and findings in the medical record. Brianne Crum Nov 08, 2016 12:11 Luciano Souza MD Nov 08, 2016 17:21
[2016-11-08] MEDS ORDERED: ACETAMINOPHEN/HYDROcodone 325 MG/5 MG TAB PO PRN ×2 (17:15)
[2016-11-08] MEDS ORDERED: MORPHINE SULFATE 4 MG/ML INJ IV PUSH PRN (17:15)
[2016-11-09] VITALS (12 sets, daily range): BP systolic 103–140; BP diastolic 69–90; PULSE 60–80; RESP 18–22; TEMP 97.1–97.9; O2SAT 93–95
[2016-11-09] MEDS: RESP: ALBUTEROL 2.5 MG/IPRATROPIUM 0.5 MG NEB (SCH) INH ×4 (03:22→21:38)
[2016-11-09] MEDS: CHLORHEXIDINE GLUCONATE 2 % 1 PACK (2 CLOTHS) TOP SCH (04:00)
[2016-11-09] MEDS: PIPERACIL-TAZO 3.375 GM PREMIX 50 ML IV SCH ×3 (04:05→21:05)
[2016-11-09] MEDS: HEPARIN SODIUM - SQ 10,000 UNITS/ML VIAL SQ SCH ×3 (04:06→21:04)
[2016-11-09 05:54] LABS: ALT (GPT) 67 U/L (12-78); ANION GAP 10 MEQ/L (5-15); AST (GOT) 40 U/L (15-37); BLOOD UREA NITROGEN 9 MG/DL (7-18); CHLORIDE 106 MEQ/L (98-107); GLOMERULAR FILTRATION RATE 57 ML/MIN (>89); POTASSIUM 3.7 MEQ/L (3.5-5.1); SODIUM (NA) 139 MEQ/L (136-145)
[2016-11-09 05:56] LABS: ALKALINE PHOSPHATASE 191 U/L (45-117); TOTAL BILIRUBIN ADULT 0.5 MG/DL (0.2-1.0)
[2016-11-09] MEDS: INSULIN NovoLIN REGULAR SUPPLEMENTAL SCALE SQ SCH ×4 (06:00→17:25)
[2016-11-09 08:14] LABS: BASOPHIL % 0.2 % (0.0-2.0); EOSINOPHIL # 0.3 TH/MM3 (0-0.4); EOSINOPHIL % 2.9 % (0.0-4.0); HEMATOCRIT 34.1 % (39.0-51.0); HEMO FLAGS DIFF FINAL; LYMPH % 16.3 % (9.0-44.0); LYMPHOCYTE # 1.5 TH/MM3 (1.0-4.8); MEAN CELL VOLUME 87.1 FL (80.0-100.0); MEAN CORPUSCULAR HEMOGLOBIN 27.7 PG (27.0-34.0); MEAN CORPUSCULAR HGB CONC 31.9 % (32.0-36.0); MONO % 6.6 % (0.0-8.0); PLATELET COUNT 261 TH/MM3 (150-450); RED BLOOD COUNT 3.92 MIL/MM3 (4.50-5.90); RED CELL DISTRIBUTION WIDTH 15.8 % (11.6-17.2); WHITE BLOOD COUNT 9.4 TH/MM3 (4.0-11.0)
--- NOTE | 2016-11-09 08:33 | HHI.HP ---
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 IN ICU. I WAS CALLED TO ASSUME MEDICAL CARE Review of Systems ROS Limitations: Clinical Condition, Poor Historian Other NEGATIVE FOURTEEN POINT ROS EXCEPT ABOVE Past Family Social History Allergies: Coded Allergies: *MDRO Multi-Drug Resistant Organism (Verified Allergy, Unknown, 11/08/16) MRSA (back wound) 2009. Positive MRSA surveillance screen 01/2014. Negative MRSA surveillance screens 09/2014. MRSA PCR Screens negative - 04/07/15 & 11/07/16 CLEARED PER INFECTION CONTROL Past Medical History CVA DEBILITY HTN HPLD SEE A/P BELOW FOR DX Past Surgical History GB BT Active Ordered Medications Current Medications Medications (Trade) Dose Ordered Sig/Maninder Route Start Time Stop Time Status Last Admin (D50w (Vial) Inj) 25 ml UNSCH PRN IV PUSH 11/06/16 19:30 (NovoLIN R SUPPLEMENTAL SCALE) 1 Q6HR SQ 11/07/16 00:00 (NS Flush) 2 ml UNSCH PRN IV FLUSH 11/06/16 21:30 (NS Flush) 2 ml BID IV FLUSH 11/07/16 09:00 11/08/16 21:16 (Tylenol) 650 mg Q6H PRN PO 11/06/16 21:30 (Zofran Inj) 4 mg Q6H PRN IV 11/06/16 21:30 (Kimber-Colace) 2 tab BID PO 11/07/16 09:00 11/08/16 21:16 (Heparin Inj) 5,000 units Q8H SQ 11/06/16 21:30 11/09/16 04:06 Miscellaneous Information 1 Q361D XX 11/06/16 21:30 (Chlorhexidine 2% Cloth) 3 pack Taper DAILY@04 TOP 11/07/16 04:00 11/03/17 03:59 11/09/16 04:00 Chlorhexidine Gluconate 3 pack 3 pack UNSCH PRN TOP 11/06/16 21:30 Piperacillin Sod/ Tazobactam Sod 50 ml @ 100 mls/hr Q8H IV 11/07/16 05:00 11/09/16 04:05 (D5-Lr Inj) 1,000 ml @ 0 mls/hr Q8H IV 11/07/16 18:00 11/08/16 02:00 (Morphine Inj) 2 mg Q3H PRN IV PUSH 11/08/16 17:15 ([place] 5-325 Mg) 1 tab Q4H PRN PO 11/08/16 17:15 ([place] 5-325 Mg) 2 tab Q6H PRN PO 11/08/16 17:15 Family History NC Social History NC Physical Exam Vital Signs Vital Signs Date Time Temp Pulse Resp B/P Pulse Ox O2 Delivery O2 Flow Rate FiO2 11/09/16 06:00 67 11/09/16 04:00 97.6 73 22 123/69 94 11/09/16 04:00 73 11/09/16 02:00 73 11/09/16 00:00 79 11/09/16 00:00 97.9 79 18 129/71 95 11/08/16 22:00 86 11/08/16 21:34 94 21 11/08/16 20:00 97.8 75 25 124/72 93 11/08/16 20:00 75 11/08/16 18:00 74 11/08/16 16:00 80 11/08/16 14:00 80 11/08/16 12:00 81 11/08/16 10:00 68 11/08/16 09:36 98 Nasal Cannula 2.00 Physical Exam GENERAL: This is a well-nourished, well-developed patient, in no apparent distress. SKIN: No rashes, ecchymoses or lesions. Cool and dry. HEAD: Atraumatic. Normocephalic. No temporal or scalp tenderness. EYES: Pupils equal round and reactive. Extraocular motions intact. No scleral icterus. No injection or drainage. ENT: Nose without bleeding, purulent drainage or septal hematoma. Throat without erythema, tonsillar hypertrophy or exudate. Uvula midline. Airway patent. NECK: Trachea midline. No JVD or lymphadenopathy. Supple, nontender, no meningeal signs. CARDIOVASCULAR: Regular rate and rhythm without murmurs, gallops, or rubs. RESPIRATORY: Clear to auscultation. Breath sounds equal bilaterally. No wheezes , rales, or rhonchi. GASTROINTESTINAL: Abdomen soft, nondistended. No hepato-splenomegaly, or palpable masses. No guarding. tender RUQ and around drain; serosanguinous drainage in the drain bag MUSCULOSKELETAL: Extremities without clubbing, cyanosis, or edema. No joint tenderness, effusion, or edema noted. No calf tenderness. Negative Homans sign bilaterally. NEUROLOGICAL: Awake and alert. Cranial nerves II through XII intact. Motor and sensory grossly within normal limits. 2 out of 5 muscle strength in all muscle groups. Normal speech. Laboratory Laboratory Tests Test 11/09/16 11/09/16 04:26 07:23 Sodium Level 139 Potassium Level 3.7 Chloride Level 106 Carbon Dioxide Level 23.0 Anion Gap 10 Blood Urea Nitrogen 9 Creatinine 1.29 Estimat Glomerular Filtration 57 Rate Random Glucose 89 Calcium Level 8.2 Total Bilirubin 0.5 Aspartate Amino Transf 40 (AST/SGOT) Alanine Aminotransferase 67 (ALT/SGPT) Alkaline Phosphatase 191 Total Protein 6.0 Albumin 2.2 White Blood Count 9.4 Red Blood Count 3.92 Hemoglobin 10.9 Hematocrit 34.1 Mean Corpuscular Volume 87.1 Mean Corpuscular Hemoglobin 27.7 Mean Corpuscular Hemoglobin 31.9 Concent Red Cell Distribution Width 15.8 Platelet Count 261 Mean Platelet Volume 8.0 Neutrophils (%) (Auto) 74.0 Lymphocytes (%) (Auto) 16.3 Monocytes (%) (Auto) 6.6 Eosinophils (%) (Auto) 2.9 Basophils (%) (Auto) 0.2 Neutrophils # (Auto) 7.0 Lymphocytes # (Auto) 1.5 Monocytes # (Auto) 0.6 Eosinophils # (Auto) 0.3 Basophils # (Auto) 0.0 CBC Comment DIFF FINAL Differential Comment Date/Time Procedure Status Source Growth 11/06/16 19:35 Aerobic Blood Culture - Preliminary Resulted Blood Peripheral NO GROWTH IN 2 DAYS 11/06/16 19:35 Anaerobic Blood Culture - Preliminary Resulted Blood Peripheral NO GROWTH IN 2 DAYS Result Diagram: 11/09/16 0723 11/09/16 0426 Assessment and Plan Problem List: (1) Acute cholecystitis due to biliary calculus Status: Acute (2) Hyperhomocysteinemia Status: Acute (3) Constipation Status: Acute (4) Broca's aphasia Status: Acute (5) Muscle spasticity Status: Chronic (6) Depression Status: Chronic (7) Hyperlipidemia Status: Chronic (8) Seizure disorder Status: Chronic (9) Hypertension Status: Chronic (10) Chronic renal disease Status: Chronic (11) 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) Status: Acute (12) Adjustment disorder Status: Acute (13) Chronic venous insufficiency Status: Acute (14) Musculoskeletal pain of lower extremity Status: Chronic (15) Cerebrovascular accident with involvement of right side of body Status: Chronic (16) Mood swings Status: Acute (17) Impaired mobility and activities of daily living Status: Acute (18) HLD (hyperlipidemia) Status: Acute (19) CKD (chronic kidney disease), stage III Status: Acute (20) CVA (cerebral vascular accident) Status: Acute (21) Hypertension Status: Acute (22) Irritability and anger Status: Acute (23) Wheelchair confinement Status: Acute Assessment and Plan GB tube to gravity Clears Zosyn Advance diet/IVF to KVO Transfer to floor AM LABS SEE ORDERS FOR MED AND LAB CHANGES Aguila Santacruz MD Nov 09, 2016 08:33
[2016-11-09] MEDS: SODIUM CHLORIDE 0.9% FLUSH 5 ML FLUSH IV FLUSH SCH ×2 (09:00→21:04)
[2016-11-09] MEDS: DOCUSATE SODIUM 50 MG/SENNA 8.6 MG TAB PO SCH ×2 (09:00→21:05)
--- NOTE | 2016-11-09 17:25 | RADRPT ---
EXAM DATE/TIME: 11/06/2016 20:58 [facility] COMPARISON: No previous studies available for comparison. INDICATIONS : Patient with a history of acute cholecystitis, sepsis. MEDICAL HISTORY : Cardiovascular problems High cholesterol CVA x1 Cerebral hemorrhage Renal insufficiency HTN SURGICAL HISTORY : Tonsillectomy ENCOUNTER: Initial ACUITY: 1 day PAIN SCORE: 10/10 LOCATION: Right flank FLUORO TIME: 0.9 minutes SEDATION TIME: 30 minutes MEDICATION(S): 1.) 1 mg midazolam (Versed) IV 2.) 50 mcg fentanyl (Sublimaze) IV 3.) 500 mg levofloxacin (Levaquin) IV Intra-procedural antibiotics were given as prescribed above. DEVICE(S): 1.) 7 Nepali Locking Skater catheter PROCEDURE : 1. Ultrasound guided puncture of the gallbladder. 2. Percutaneous cholangiogram. 3. Percutaneous cholecystostomy tube placement. 4. Conscious sedation with continuous EKG and oximetry monitoring. The risks, benefits and alternatives to the procedure were explained and verbal and written consent w as obtained. The site was prepped in sterile fashion. Full sterile technique was used, including ca p, mask, sterile gloves and gown and a large sterile sheet. Hand hygiene and 2% chlorhexidine and/or betadine/alcohol prep was utilized per protocol for cutaneous antisepsis. The skin and subcutaneous tissues were infiltrated with local anesthetic solution. With ultrasound and fluoroscopic guidance the gallbladder was punctured with a micropuncture set and a 4 Nepali dilator was placed. Injection of positive contrast demonstrates position within the gallb ladder. A 0.035 guidewire was placed within the gallbladder lumen and dilatation was performed to ac cept the prescribed cather. Conscious sedation was performed with the prescribed dosages and duration as above. The patient tole rated the procedure well and there were no complications. EKG and oximetry remained stable throughou t the procedure. The patient was sent to post anesthesia recovery in stable condition. CONCLUSION: Uncomplicated percutaneous cholecystostomy as above. Eron Lawson MD on November 09, 2016 at 17:23 Board Certified Radiologist. This report was verified electronically.
--- NOTE | 2016-11-09 21:18 | HHI.PR ---
Subjective Subjective Notes no new c/o no pain Objective Vitals/I&O Vital Signs Date Time Temp Pulse Resp B/P Pulse Ox O2 Delivery O2 Flow Rate FiO2 11/09/16 20:00 97.6 75 20 103/71 95 11/08/16 21:34 21 11/08/16 09:36 Nasal Cannula 2.00 Labs Laboratory Tests Test 11/09/16 11/09/16 04:26 07:23 Sodium Level 139 Potassium Level 3.7 Chloride Level 106 Carbon Dioxide Level 23.0 Anion Gap 10 Blood Urea Nitrogen 9 Creatinine 1.29 Estimat Glomerular Filtration 57 Rate Random Glucose 89 Calcium Level 8.2 Total Bilirubin 0.5 Aspartate Amino Transf 40 (AST/SGOT) Alanine Aminotransferase 67 (ALT/SGPT) Alkaline Phosphatase 191 Total Protein 6.0 Albumin 2.2 White Blood Count 9.4 Red Blood Count 3.92 Hemoglobin 10.9 Hematocrit 34.1 Mean Corpuscular Volume 87.1 Mean Corpuscular Hemoglobin 27.7 Mean Corpuscular Hemoglobin 31.9 Concent Red Cell Distribution Width 15.8 Platelet Count 261 Mean Platelet Volume 8.0 Neutrophils (%) (Auto) 74.0 Lymphocytes (%) (Auto) 16.3 Monocytes (%) (Auto) 6.6 Eosinophils (%) (Auto) 2.9 Basophils (%) (Auto) 0.2 Neutrophils # (Auto) 7.0 Lymphocytes # (Auto) 1.5 Monocytes # (Auto) 0.6 Eosinophils # (Auto) 0.3 Basophils # (Auto) 0.0 CBC Comment DIFF FINAL Differential Comment Date/Time Procedure Status Source Growth 11/06/16 19:35 Aerobic Blood Culture - Preliminary Resulted Blood Peripheral NO GROWTH IN 3 DAYS 11/06/16 19:35 Anaerobic Blood Culture - Preliminary Resulted Blood Peripheral NO GROWTH IN 3 DAYS Cardiovascular: Regular Lungs: Clear Abdomen: Non-distended Extremities: No edema, Perfused Narrative Exam biliary tube with clear bile A/P Assessment and Plan 56yo male s/p cholecystostomy tube, stable. continue supportive care, ABX and drain to gravity bag Donavon Garces MD Nov 09, 2016 21:18
[2016-11-10] MEDS: RESP: ALBUTEROL 2.5 MG/IPRATROPIUM 0.5 MG NEB (SCH) INH ×4 (03:52→21:42)
[2016-11-10 04:00] VITALS: BP 134/68; PULSE 67; RESP 18; TEMP 97.4; O2SAT 97
[2016-11-10] MEDS: CHLORHEXIDINE GLUCONATE 2 % 1 PACK (2 CLOTHS) TOP SCH (04:00)
[2016-11-10] MEDS: HEPARIN SODIUM - SQ 10,000 UNITS/ML VIAL SQ SCH ×3 (05:45→20:37)
[2016-11-10] MEDS: PIPERACIL-TAZO 3.375 GM PREMIX 50 ML IV SCH ×3 (05:45→20:35)
[2016-11-10] MEDS: INSULIN NovoLIN REGULAR SUPPLEMENTAL SCALE SQ SCH ×4 (05:46→23:56)
[2016-11-10 08:00] VITALS: BP 149/81; PULSE 61; PULSE 86; RESP 16; TEMP 98.3; O2SAT 97
[2016-11-10] MEDS: DOCUSATE SODIUM 50 MG/SENNA 8.6 MG TAB PO SCH ×2 (08:10→20:36)
[2016-11-10] MEDS: SODIUM CHLORIDE 0.9% FLUSH 5 ML FLUSH IV FLUSH SCH ×2 (09:00→20:36)
[2016-11-10 10:02] VITALS: O2SAT 97
--- NOTE | 2016-11-10 10:33 | HHI.FPPN ---
Objective Vitals Vital Signs Date Time Temp Pulse Resp B/P Pulse Ox O2 Delivery O2 Flow Rate FiO2 11/10/16 10:02 97 21 11/10/16 08:00 98.3 61 16 149/81 97 11/10/16 04:00 97.4 67 18 134/68 97 11/10/16 00:00 11/09/16 21:39 93 11/09/16 20:00 74 11/09/16 20:00 97.6 75 20 103/71 95 11/09/16 16:00 97.9 80 20 128/77 95 11/09/16 13:00 75 11/09/16 12:30 97.9 77 20 140/90 93 I/O 11/09/16 11/09/16 11/09/16 11/10/16 11/10/16 11/10/16 07:00 15:00 23:00 07:00 15:00 23:00 Intake Total 580 ml 647 ml 240 ml 240 ml Output Total 1060 ml 2425 ml 750 ml 650 ml Balance -480 ml -1778 ml -510 ml -410 ml Intake Oral 480 ml 600 ml 240 ml 240 ml IV Total 100 ml 47 ml Output Urine Total 1000 ml 2425 ml 700 ml 650 ml Drainage Total 60 ml 50 ml # Bowel Movements 1 1 Result Diagram: 11/09/16 0723 11/09/16 0426 Objective Remarks GENERAL: SKIN: Warm and dry. HEAD: Atraumatic. Normocephalic. EYES: Pupils equal and round. No scleral icterus. No injection or drainage. ENT: No nasal bleeding or discharge. Mucous membranes pink and moist. NECK: Trachea midline. No JVD. CARDIOVASCULAR: Regular rate and rhythm. RESPIRATORY: No accessory muscle use. Clear to auscultation. Breath sounds equal bilaterally. GASTROINTESTINAL: Abdomen soft, non-tender, nondistended. Hepatic and splenic margins not palpable. GBT draining MUSCULOSKELETAL: Extremities without clubbing, cyanosis, or edema. No obvious deformities. NEUROLOGICAL: Awake and alert. No obvious cranial nerve deficits. Motor grossly within normal limits. 2 out of 5 muscle strength in the arms and legs. Normal speech. PSYCHIATRIC: Appropriate mood and affect; insight and judgment normal. Medications and IVs Current Medications Medications (Trade) Dose Ordered Sig/Maninder Route Start Time Stop Time Status Last Admin (D50w (Vial) Inj) 25 ml UNSCH PRN IV PUSH 1/18/17 19:30 (NovoLIN R SUPPLEMENTAL SCALE) 1 Q6HR SQ 11/07/16 00:00 (NS Flush) 2 ml UNSCH PRN IV FLUSH 11/06/16 21:30 (NS Flush) 2 ml BID IV FLUSH 11/07/16 09:00 11/09/16 21:04 (Tylenol) 650 mg Q6H PRN PO 11/06/16 21:30 (Zofran Inj) 4 mg Q6H PRN IV 11/06/16 21:30 (Kimber-Colace) 2 tab BID PO 11/07/16 09:00 11/09/16 21:05 (Heparin Inj) 5,000 units Q8H SQ 11/06/16 21:30 11/10/16 05:45 Miscellaneous Information 1 Q361D XX 11/06/16 21:30 (Chlorhexidine 2% Cloth) 3 pack Taper DAILY@04 TOP 11/07/16 04:00 11/03/17 03:59 11/09/16 04:00 Chlorhexidine Gluconate 3 pack 3 pack UNSCH PRN TOP 11/06/16 21:30 Piperacillin Sod/ Tazobactam Sod 50 ml @ 100 mls/hr Q8H IV 11/07/16 05:00 11/10/16 05:45 (D5-Lr Inj) 1,000 ml @ 0 mls/hr Q8H IV 11/07/16 18:00 11/08/16 02:00 (Morphine Inj) 2 mg Q3H PRN IV PUSH 11/08/16 17:15 ([place] 5-325 Mg) 1 tab Q4H PRN PO 11/08/16 17:15 ([place] 5-325 Mg) 2 tab Q6H PRN PO 11/08/16 17:15 A/P Problem List: (1) Acute renal injury Status: Acute (2) Hypomagnesemia Status: Acute (3) DVT prophylaxis Status: Chronic (4) Hyperhomocystinemia Status: Chronic (5) Acute cholecystitis due to biliary calculus Status: Acute (6) Constipation Status: Acute (7) Adjustment disorder Status: Acute (8) Anemia Status: Acute (9) Broca's aphasia Status: Acute (10) Depression Status: Chronic (11) Hyperlipidemia Status: Chronic (12) Muscle spasticity Status: Chronic (13) Seizure disorder Status: Chronic (14) Chronic venous insufficiency Status: Acute (15) Hypertension Status: Chronic (16) Mood swings Status: Acute (17) HLD (hyperlipidemia) Status: Acute (18) Chronic renal disease Status: Chronic (19) CKD (chronic kidney disease), stage III Status: Acute (20) MRSA carrier Status: Acute (21) Cerebrovascular accident with involvement of right side of body Status: Chronic (22) 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
--- NOTE | 2016-11-10 11:41 | HHI.PR ---
Subjective Subjective Notes feels fine, denies pain, tony po, drain working Objective Vitals/I&O Vital Signs Date Time Temp Pulse Resp B/P Pulse Ox O2 Delivery O2 Flow Rate FiO2 11/10/16 10:02 97 21 11/10/16 08:00 98.3 61 16 149/81 11/08/16 09:36 Nasal Cannula 2.00 Labs Date/Time Procedure Status Source Growth 11/06/16 19:35 Aerobic Blood Culture - Preliminary Resulted Blood Peripheral NO GROWTH IN 4 DAYS 11/06/16 19:35 Anaerobic Blood Culture - Preliminary Resulted Blood Peripheral NO GROWTH IN 4 DAYS Abdomen: Non-distended, Non-tender Narrative Exam bilary drain with clear bile, no pus noted A/P Assessment and Plan choleangititis, s/p amol tube. doing well continue abx and drainage dr iniguez plans lap amol when stable, he will FU in am Estuardo Raman MD Nov 10, 2016 11:41
[2016-11-10 12:00] VITALS: BP 133/74; PULSE 69; RESP 16; TEMP 97.6; O2SAT 96
[2016-11-10 16:00] VITALS: BP 136/74; PULSE 70; RESP 20; TEMP 98.3; O2SAT 94
[2016-11-10 21:42] VITALS: O2SAT 94
[2016-11-11] VITALS (9 sets, daily range): BP systolic 133–143; BP diastolic 63–112; PULSE 61–77; RESP 16–20; TEMP 97.3–98.3; O2SAT 93–95
[2016-11-11] MEDS: CHLORHEXIDINE GLUCONATE 2 % 1 PACK (2 CLOTHS) TOP SCH (04:00)
[2016-11-11] MEDS: PIPERACIL-TAZO 3.375 GM PREMIX 50 ML IV SCH ×3 (04:35→22:36)
[2016-11-11] MEDS: HEPARIN SODIUM - SQ 10,000 UNITS/ML VIAL SQ SCH ×3 (04:36→22:36)
[2016-11-11] MEDS: INSULIN NovoLIN REGULAR SUPPLEMENTAL SCALE SQ SCH ×3 (06:00→18:00)
--- NOTE | 2016-11-11 11:01 | HHI.PR ---
Subjective Subjective Notes Resting in bed Objective Vitals/I&O Vital Signs Date Time Temp Pulse Resp B/P Pulse Ox O2 Delivery O2 Flow Rate FiO2 11/11/16 09:45 142/81 11/11/16 08:00 97.3 64 20 95 11/10/16 10:02 21 11/08/16 09:36 Nasal Cannula 2.00 Labs Date/Time Procedure Status Source Growth 11/06/16 19:35 Aerobic Blood Culture - Preliminary Resulted Blood Peripheral NO GROWTH IN 4 DAYS 11/06/16 19:35 Anaerobic Blood Culture - Preliminary Resulted Blood Peripheral NO GROWTH IN 4 DAYS Cardiovascular: Regular Lungs: Clear Abdomen: Other (RUQ tenderness; amol tube in place with bilious drainage ) Extremities: No edema A/P Assessment and Plan 56 year old male with cholangitis with cholecystectomy tube -Continue amol tube to gravity -Tolerating heart healthy diet -Continue Zosyn -Plan for Lap amol this week---will arrange scheduling with Dr. Souza Attending Note - Dr. Souza Patient awake and alert Abdomen soft and nontender Discussed surgery plans for this week; possibly tomorrow or 11/14, depending on OR availability Brianne Crum Nov 11, 2016 11:01 Luciano Souza MD Nov 11, 2016 12:29
[2016-11-11] MEDS: DOCUSATE SODIUM 50 MG/SENNA 8.6 MG TAB PO SCH ×2 (11:39→22:36)
[2016-11-11] MEDS: SODIUM CHLORIDE 0.9% FLUSH 5 ML FLUSH IV FLUSH SCH ×2 (11:43→22:36)
--- NOTE | 2016-11-11 11:48 | HHI.FPPN ---
Objective Vitals Vital Signs Date Time Temp Pulse Resp B/P Pulse Ox O2 Delivery O2 Flow Rate FiO2 11/11/16 09:45 142/81 11/11/16 08:00 97.3 64 20 133/112 95 11/11/16 04:00 97.5 64 18 137/63 94 11/11/16 00:00 97.8 68 18 139/74 93 11/10/16 21:42 94 11/10/16 16:00 98.3 70 20 136/74 94 11/10/16 12:00 97.6 69 16 133/74 96 I/O 11/10/16 11/10/16 11/10/16 11/11/16 11/11/16 11/11/16 07:00 15:00 23:00 07:00 15:00 23:00 Intake Total 240 ml 360 ml 360 ml 480 ml Output Total 650 ml 1650 ml 575 ml 2300 ml Balance -410 ml -1290 ml -215 ml -1820 ml Intake Oral 240 ml 360 ml 360 ml 480 ml Output Urine Total 650 ml 1650 ml 575 ml 2300 ml # Bowel Movements 0 0 0 Result Diagram: 11/09/1623 11/09/16 0426 Objective Remarks GENERAL: SKIN: Warm and dry. HEAD: Atraumatic. Normocephalic. EYES: Pupils equal and round. No scleral icterus. No injection or drainage. ENT: No nasal bleeding or discharge. Mucous membranes pink and moist. NECK: Trachea midline. No JVD. CARDIOVASCULAR: Regular rate and rhythm. RESPIRATORY: No accessory muscle use. Clear to auscultation. Breath sounds equal bilaterally. GASTROINTESTINAL: Abdomen soft, non-tender, nondistended. Hepatic and splenic margins not palpable. GBT draining MUSCULOSKELETAL: Extremities without clubbing, cyanosis, or edema. No obvious deformities. NEUROLOGICAL: Awake and alert. No obvious cranial nerve deficits. Motor grossly within normal limits. 2 out of 5 muscle strength in the arms and legs. Normal speech. PSYCHIATRIC: Appropriate mood and affect; insight and judgment normal. A/P Problem List: (1) Acute renal injury Status: Acute (2) Hypomagnesemia Status: Acute (3) DVT prophylaxis Status: Chronic (4) Hyperhomocystinemia Status: Chronic (5) Acute cholecystitis due to biliary calculus Status: Acute (6) Constipation Status: Acute (7) Adjustment disorder Status: Acute (8) Anemia Status: Acute (9) Broca's aphasia Status: Acute (10) Depression Status: Chronic (11) Hyperlipidemia Status: Chronic (12) Muscle spasticity Status: Chronic (13) Seizure disorder Status: Chronic (14) Chronic venous insufficiency Status: Acute (15) Hypertension Status: Chronic (16) Mood swings Status: Acute (17) HLD (hyperlipidemia) Status: Acute (18) Chronic renal disease Status: Chronic (19) CKD (chronic kidney disease), stage III Status: Acute (20) MRSA carrier Status: Acute (21) Cerebrovascular accident with involvement of right side of body Status: Chronic (22) 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
[2016-11-12] VITALS (7 sets, daily range): BP systolic 120–155; BP diastolic 72–85; PULSE 64–87; RESP 18; TEMP 97.2–98.2; O2SAT 93–96
[2016-11-12] MEDS: CHLORHEXIDINE GLUCONATE 2 % 1 PACK (2 CLOTHS) TOP SCH (04:00)
[2016-11-12] MEDS: PIPERACIL-TAZO 3.375 GM PREMIX 50 ML IV SCH ×4 (05:57→17:30)
[2016-11-12] MEDS: HEPARIN SODIUM - SQ 10,000 UNITS/ML VIAL SQ SCH ×2 (05:57→20:32)
[2016-11-12] MEDS: INSULIN NovoLIN REGULAR SUPPLEMENTAL SCALE SQ SCH ×4 (05:57→18:00)
[2016-11-12] MEDS: SODIUM CHLORIDE 0.9% FLUSH 5 ML FLUSH IV FLUSH SCH ×2 (08:57→20:32)
[2016-11-12] MEDS: DOCUSATE SODIUM 50 MG/SENNA 8.6 MG TAB PO SCH ×2 (08:57→20:18)
--- NOTE | 2016-11-12 11:14 | HHI.FPPN ---
Subjective Remarks NO C/O LOOKS BETTER D/W RN Objective Vitals Vital Signs Date Time Temp Pulse Resp B/P Pulse Ox O2 Delivery O2 Flow Rate FiO2 11/12/16 08:00 97.3 65 18 121/72 96 11/12/16 04:00 97.2 71 18 134/78 93 11/12/16 00:00 97.6 64 18 152/72 93 11/11/16 22:01 74 11/11/16 20:23 Room Air 11/11/16 20:00 97.9 77 17 143/73 93 11/11/16 16:00 98.3 75 16 139/76 95 11/11/16 12:00 97.9 69 20 138/78 95 I/O 11/11/16 11/11/16 11/11/16 11/12/16 11/12/16 11/12/16 07:00 15:00 23:00 07:00 15:00 23:00 Intake Total 480 ml 940 ml 360 ml 100 ml Output Total 2355 ml 1000 ml 0 ml 660 ml Balance -1875 ml -60 ml 360 ml -560 ml Intake Oral 480 ml 940 ml 360 ml 100 ml Output Urine Total 2300 ml 1000 ml 0 ml 600 ml Drainage Total 55 ml 60 ml # Bowel Movements 0 1 0 0 Result Diagram: 11/09/1672211/09/16 0426 Objective Remarks GENERAL: SKIN: Warm and dry. HEAD: Atraumatic. Normocephalic. EYES: Pupils equal and round. No scleral icterus. No injection or drainage. ENT: No nasal bleeding or discharge. Mucous membranes pink and moist. NECK: Trachea midline. No JVD. CARDIOVASCULAR: Regular rate and rhythm. RESPIRATORY: No accessory muscle use. Clear to auscultation. Breath sounds equal bilaterally. GASTROINTESTINAL: Abdomen soft, non-tender, nondistended. Hepatic and splenic margins not palpable. GBT draining MUSCULOSKELETAL: Extremities without clubbing, cyanosis, or edema. No obvious deformities. NEUROLOGICAL: Awake and alert. No obvious cranial nerve deficits. Motor grossly within normal limits. 2 out of 5 muscle strength in the arms and legs. Normal speech. PSYCHIATRIC: Appropriate mood and affect; insight and judgment normal. Medications and IVs Current Medications Medications (Trade) Dose Ordered Sig/Maninder Route Start Time Stop Time Status Last Admin (D50w (Vial) Inj) 25 ml UNSCH PRN IV PUSH 1/18/17 19:30 (NovoLIN R SUPPLEMENTAL SCALE) 1 Q6HR SQ 11/07/16 00:00 (NS Flush) 2 ml UNSCH PRN IV FLUSH 11/06/16 21:30 (NS Flush) 2 ml BID IV FLUSH 11/07/16 09:00 11/12/16 08:57 (Tylenol) 650 mg Q6H PRN PO 11/06/16 21:30 (Zofran Inj) 4 mg Q6H PRN IV 11/06/16 21:30 (Kimber-Colace) 2 tab BID PO 11/07/16 09:00 11/11/16 22:36 (Heparin Inj) 5,000 units Q8H SQ 11/06/16 21:30 11/12/16 05:57 Miscellaneous Information 1 Q361D XX 11/06/16 21:30 (Chlorhexidine 2% Cloth) Taper DAILY@04 TOP 11/07/16 04:00 11/03/17 03:59 11/09/16 04:00 Chlorhexidine Gluconate 3 pack 3 pack UNSCH PRN TOP 11/06/16 21:30 Piperacillin Sod/ Tazobactam Sod 50 ml @ 100 mls/hr Q8H IV 11/07/16 05:00 11/12/16 05:57 (D5-Lr Inj) 1,000 ml @ 0 mls/hr Q8H IV 11/07/16 18:00 11/08/16 02:00 (Morphine Inj) 2 mg Q3H PRN IV PUSH 11/08/16 17:15 ([place] 5-325 Mg) 1 tab Q4H PRN PO 11/08/16 17:15 ([place] 5-325 Mg) 2 tab Q6H PRN PO 11/08/16 17:15 A/P Problem List: (1) Acute renal injury Status: Acute (2) Hypomagnesemia Status: Acute (3) DVT prophylaxis Status: Chronic (4) Hyperhomocystinemia Status: Chronic (5) Acute cholecystitis due to biliary calculus Status: Acute (6) Constipation Status: Acute (7) Adjustment disorder Status: Acute (8) Anemia Status: Acute (9) Broca's aphasia Status: Acute (10) Depression Status: Chronic (11) Hyperlipidemia Status: Chronic (12) Muscle spasticity Status: Chronic (13) Seizure disorder Status: Chronic (14) Chronic venous insufficiency Status: Acute (15) Hypertension Status: Chronic (16) Mood swings Status: Acute (17) HLD (hyperlipidemia) Status: Acute (18) Chronic renal disease Status: Chronic (19) CKD (chronic kidney disease), stage III Status: Acute (20) MRSA carrier Status: Acute (21) Cerebrovascular accident with involvement of right side of body Status: Chronic (22) 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
--- NOTE | 2016-11-12 12:05 | HHI.PR ---
Subjective Subjective Notes No complaints; tolerating diet Objective Vitals/I&O Vital Signs Date Time Temp Pulse Resp B/P Pulse Ox O2 Delivery O2 Flow Rate FiO2 11/12/16 08:00 97.3 65 18 121/72 96 11/11/16 20:23 Room Air 11/10/16 10:02 21 11/08/16 09:36 2.00 Lungs: Clear Abdomen: Non-distended, Non-tender Extremities: No edema Narrative Exam Marquez in place A/P Assessment and Plan 56 year old male with cholangitis with cholecystectomy tube; continues to improve Should be safe for surgery next day or so. -Continue amol tube to gravity -Tolerating heart healthy diet -Continue Zosyn -Plan for Lap amol ; anticipate D/C 11/15 Discharge Planning Return to SNF 11/16 after lap amol 11/15 Luciano Souza MD Nov 12, 2016 12:05
[2016-11-13] VITALS (7 sets, daily range): BP systolic 112–129; BP diastolic 66–80; PULSE 64–74; RESP 17–20; TEMP 97.5–98.2; O2SAT 93–96
[2016-11-13] MEDS: PIPERACIL-TAZO 3.375 GM PREMIX 50 ML IV SCH ×3 (01:16→18:16)
[2016-11-13] MEDS: CHLORHEXIDINE GLUCONATE 2 % 1 PACK (2 CLOTHS) TOP SCH (04:00)
[2016-11-13] MEDS: HEPARIN SODIUM - SQ 10,000 UNITS/ML VIAL SQ SCH ×2 (05:30→14:38)
[2016-11-13] MEDS: INSULIN NovoLIN REGULAR SUPPLEMENTAL SCALE SQ SCH ×4 (05:49→18:00)
[2016-11-13 08:14] LABS: BASOPHIL # 0.1 TH/MM3 (0-0.2); BASOPHIL % 0.5 % (0.0-2.0); EOSINOPHIL # 0.4 TH/MM3 (0-0.4); EOSINOPHIL % 2.3 % (0.0-4.0); HEMATOCRIT 35.5 % (39.0-51.0); HEMO FLAGS DIFF FINAL; LYMPH % 13.7 % (9.0-44.0); LYMPHOCYTE # 2.1 TH/MM3 (1.0-4.8); MEAN CELL VOLUME 87.2 FL (80.0-100.0); MEAN CORPUSCULAR HEMOGLOBIN 28.2 PG (27.0-34.0); MEAN CORPUSCULAR HGB CONC 32.4 % (32.0-36.0); MONO % 5.5 % (0.0-8.0); PLATELET COUNT 323 TH/MM3 (150-450); RED BLOOD COUNT 4.07 MIL/MM3 (4.50-5.90); RED CELL DISTRIBUTION WIDTH 15.8 % (11.6-17.2); WHITE BLOOD COUNT 15.5 TH/MM3 (4.0-11.0)
[2016-11-13 08:27] LABS: ANION GAP 9 MEQ/L (5-15); AST (GOT) 26 U/L (15-37); BICARBONATE 24.3 MEQ/L (21.0-32.0); BLOOD UREA NITROGEN 19 MG/DL (7-18); CHLORIDE 107 MEQ/L (98-107); GLOMERULAR FILTRATION RATE 51 ML/MIN (>89); POTASSIUM 3.8 MEQ/L (3.5-5.1); SODIUM (NA) 140 MEQ/L (136-145)
[2016-11-13 08:30] LABS: ALKALINE PHOSPHATASE 131 U/L (45-117); ALT (GPT) 50 U/L (12-78); TOTAL BILIRUBIN ADULT 0.3 MG/DL (0.2-1.0)
[2016-11-13] MEDS: DOCUSATE SODIUM 50 MG/SENNA 8.6 MG TAB PO SCH ×3 (09:00→21:00)
[2016-11-13] MEDS: SODIUM CHLORIDE 0.9% FLUSH 5 ML FLUSH IV FLUSH SCH ×2 (10:02→21:07)
--- NOTE | 2016-11-13 11:46 | HHI.FPPN ---
Subjective Remarks [facility] D/W RN D/W DR COX TRANSFER OF CARE Objective Vitals Vital Signs Date Time Temp Pulse Resp B/P Pulse Ox O2 Delivery O2 Flow Rate FiO2 11/13/16 04:00 98.2 67 18 117/66 93 11/13/16 00:00 98.1 64 17 125/69 95 11/12/16 20:35 Room Air 11/12/16 20:00 87 11/12/16 20:00 97.7 82 18 155/85 96 11/12/16 18:30 68 11/12/16 16:00 98.0 70 18 120/75 96 11/12/16 16:00 Room Air 11/12/16 12:00 Room Air 11/12/16 12:00 98.2 70 18 124/73 96 I/O 11/12/16 11/12/16 11/12/16 11/13/16 11/13/16 11/13/16 06:59 14:59 22:59 06:59 14:59 22:59 Intake Total 100 ml 480 ml 360 ml 100 ml Output Total 660 ml 830 ml 700 ml 350 ml Balance -560 ml -350 ml -340 ml -250 ml Intake Oral 100 ml 480 ml 360 ml 100 ml Output Urine Total 600 ml 800 ml 700 ml 350 ml Drainage Total 60 ml 30 ml # Bowel Movements 0 1 1 0 Result Diagram: 11/13/16 0716 11/13/16 0716 Objective Remarks GENERAL: SKIN: Warm and dry. HEAD: Atraumatic. Normocephalic. EYES: Pupils equal and round. No scleral icterus. No injection or drainage. ENT: No nasal bleeding or discharge. Mucous membranes pink and moist. NECK: Trachea midline. No JVD. CARDIOVASCULAR: Regular rate and rhythm. RESPIRATORY: No accessory muscle use. Clear to auscultation. Breath sounds equal bilaterally. GASTROINTESTINAL: Abdomen soft, non-tender, nondistended. Hepatic and splenic margins not palpable. GBT draining MUSCULOSKELETAL: Extremities without clubbing, cyanosis, or edema. No obvious deformities. NEUROLOGICAL: Awake and alert. No obvious cranial nerve deficits. Motor grossly within normal limits. 2 out of 5 muscle strength in the arms and legs. Normal speech. PSYCHIATRIC: Appropriate mood and affect; insight and judgment normal. Medications and IVs Current Medications Medications (Trade) Dose Ordered Sig/Maninder Route Start Time Stop Time Status Last Admin (D50w (Vial) Inj) 25 ml UNSCH PRN IV PUSH 11/06/16 19:30 (NovoLIN R SUPPLEMENTAL SCALE) 1 Q6HR SQ 11/07/16 00:00 (NS Flush) 2 ml UNSCH PRN IV FLUSH 11/06/16 21:30 (NS Flush) 2 ml BID IV FLUSH 11/07/16 09:00 11/13/16 10:02 (Tylenol) 650 mg Q6H PRN PO 11/06/16 21:30 (Zofran Inj) 4 mg Q6H PRN IV 11/06/16 21:30 (Kimber-Colace) 2 tab BID PO 11/07/16 09:00 11/11/16 22:36 (Heparin Inj) 5,000 units Q8H SQ 11/06/16 21:30 11/13/16 05:30 Miscellaneous Information 1 Q361D XX 11/06/16 21:30 (Chlorhexidine 2% Cloth) Taper DAILY@04 TOP 11/07/16 04:00 11/03/17 03:59 11/09/16 04:00 Chlorhexidine Gluconate 3 pack 3 pack UNSCH PRN TOP 11/06/16 21:30 (D5-Lr Inj) 1,000 ml @ 0 mls/hr Q8H IV 11/07/16 18:00 11/08/16 02:00 (Morphine Inj) 2 mg Q3H PRN IV PUSH 11/08/16 17:15 ([place] 5-325 Mg) 1 tab Q4H PRN PO 11/08/16 17:15 Acetaminophen/ Hydrocodone Bitart 2 tab 2 tab Q6H PRN PO 11/08/16 17:15 (Zosyn 3.375 Gm Premix) 50 ml @ 100 mls/hr Q8H IV 11/12/16 17:00 11/13/16 10:03 A/P Problem List: (1) Acute cholecystitis due to biliary calculus Status: Acute (2) Acute renal injury Status: Acute (3) Hypomagnesemia Status: Acute (4) DVT prophylaxis Status: Chronic (5) Hyperhomocystinemia Status: Chronic (6) Constipation Status: Acute (7) Adjustment disorder Status: Acute (8) Anemia Status: Acute (9) Broca's aphasia Status: Acute (10) Depression Status: Chronic (11) Hyperlipidemia Status: Chronic (12) Muscle spasticity Status: Chronic (13) Seizure disorder Status: Chronic (14) Chronic venous insufficiency Status: Acute (15) Hypertension Status: Chronic (16) Mood swings Status: Acute (17) HLD (hyperlipidemia) Status: Acute (18) Chronic renal disease Status: Chronic (19) CKD (chronic kidney disease), stage III Status: Acute (20) MRSA carrier Status: Acute (21) Cerebrovascular accident with involvement of right side of body Status: Chronic (22) 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 CARE OF SOME SORT WIT DR MEHRDAD VALENTIN LISTED HER PCP. Aguila Santacruz MD Nov 13, 2016 11:46
--- NOTE | 2016-11-13 16:04 | HHI.PR ---
Subjective Subjective Notes Ready for surgery tomorrow No other complaints Objective Vitals/I&O Vital Signs Date Time Temp Pulse Resp B/P Pulse Ox O2 Delivery O2 Flow Rate FiO2 11/13/16 12:00 97.5 65 20 117/72 96 11/12/16 20:35 Room Air 11/10/16 10:02 21 Labs Laboratory Tests Test 11/13/16 07:16 White Blood Count 15.5 Red Blood Count 4.07 Hemoglobin 11.5 Hematocrit 35.5 Mean Corpuscular Volume 87.2 Mean Corpuscular Hemoglobin 28.2 Mean Corpuscular Hemoglobin 32.4 Concent Red Cell Distribution Width 15.8 Platelet Count 323 Mean Platelet Volume 7.9 Neutrophils (%) (Auto) 78.0 Lymphocytes (%) (Auto) 13.7 Monocytes (%) (Auto) 5.5 Eosinophils (%) (Auto) 2.3 Basophils (%) (Auto) 0.5 Neutrophils # (Auto) 12.0 Lymphocytes # (Auto) 2.1 Monocytes # (Auto) 0.9 Eosinophils # (Auto) 0.4 Basophils # (Auto) 0.1 CBC Comment DIFF FINAL Differential Comment Sodium Level 140 Potassium Level 3.8 Chloride Level 107 Carbon Dioxide Level 24.3 Anion Gap 9 Blood Urea Nitrogen 19 Creatinine 1.44 Estimat Glomerular Filtration 51 Rate Random Glucose 85 Calcium Level 8.5 Total Bilirubin 0.3 Aspartate Amino Transf 26 (AST/SGOT) Alanine Aminotransferase 50 (ALT/SGPT) Alkaline Phosphatase 131 Total Protein 6.7 Albumin 2.8 Cardiovascular: Regular Lungs: Clear Abdomen: Non-distended, Non-tender, Other (amol tube in RUQ with bilious drainage ) Extremities: No edema A/P Assessment and Plan 56 year old male with cholangitis with cholecystectomy tube -Continue amol tube to gravity -Tolerating heart healthy diet; NPO after MN for OR tomorrow -Consents on chart -Continue Zosyn Attending Note - Dr Harley zaragoza The exam, history, and the medical decision-making described in the above note were completed with the assistance of the mid-level provider. I reviewed and agree with the findings presented. I attest that I had a [id number] encounter with the patient on the same day, and personally performed and documented my assessment and findings in the medical record. Brianne Crum Nov 13, 2016 16:04 Luciano Souza MD Dec 03, 2016 23:42
--- NOTE | 2016-11-13 17:21 | RADRPT ---
EXAM DATE/TIME: 11/13/2016 14:10 [place] COMPARISON: CHEST SINGLE AP, November 08, 2016, 5:24. INDICATIONS : Cholecystostomy tube postition. MEDICAL HISTORY : Hypertension. Hypercholesterolemia. Myocardial infarction. TIA. CVA. Renal disease. GERD. SURGICAL HISTORY : Cholecystectomy. Bunionectomy. ENCOUNTER: Subsequent ACUITY: 2 weeks PAIN SCORE: 0/10 LOCATION: Right abdomen. FINDINGS: The cholecystostomy tube appears in good position. The bowel gas pattern is within normal limits. There are degenerative changes throughout the spine. CONCLUSION: 1. Cholecystostomy tube appears in satisfactory position. Ramon Snow MD on November 13, 2016 at 17:19 Board Certified Radiologist. This report was verified electronically.
[2016-11-14] VITALS (8 sets, daily range): BP systolic 117–129; BP diastolic 65–79; PULSE 64–82; RESP 18; TEMP 97.5–98.4; O2SAT 97–98
[2016-11-14] MEDS: PIPERACIL-TAZO 3.375 GM PREMIX 50 ML IV SCH ×4 (00:50→18:13)
[2016-11-14] MEDS: CHLORHEXIDINE GLUCONATE 2 % 1 PACK (2 CLOTHS) TOP SCH (04:00)
[2016-11-14] MEDS: INSULIN NovoLIN REGULAR SUPPLEMENTAL SCALE SQ SCH ×4 (06:00→18:00)
--- NOTE | 2016-11-14 06:57 | MB ---
cc: HARLAN ATWOOD DO DATE OF CONSULTATION 11/13/2016 REASON FOR CONSULTATION Nonsustained VT HISTORY OF PRESENT ILLNESS Dylon Renteria is a 56-year-old male who was originally brought on November 06, 2016 from his halfway to the [facility] emergency room due to right upper quadrant abdominal pain. He endorses that the abdominal pain was crampy and worse with food. He was found to have possible cholangitis and a percutaneous cholecystostomy tube was placed. He was found to be septic from his cholangitis and has since got over that. He is planned to have a lap colostomy tomorrow. Today during the day, he was found to have an 8 beat run of nonsustained VT. Looking back through his telemetry, it did not appear that he had any episodes of this before. It is difficult to get history from the patient, but it appears that he was asymptomatic and currently hemodynamically stable. PAST MEDICAL HISTORY 1. Anxiety 2. Depression 3. Hyperlipidemia 4. TIA x4 5. CVA times one 6. Cerebral hemorrhage 7. Gastroesophageal reflux disease 8. Chronic renal insufficiency 9. Headaches 10. Hypertension with medication noncompliance. 11. Seizures PAST SURGICAL HISTORY 1. Tonsillectomy 2. Left wrist surgery ALLERGIES NO KNOWN DRUG ALLERGIES. MEDICATIONS 1. Vasotec 5 mg daily 2. Keppra 500 mg b.i.d. 3. Celexa 20 mg daily 4. Allopurinol 100 mg daily 5. Lopressor 25 mg b.i.d. 6. Procardia XL 90 mg daily 7. Pravastatin 40 mg daily 8. Iron 325 mg daily 9. Aspirin 81 mg daily 10. Tramadol 50 mg q4 hours as needed 11. Protonix 40 mg daily 12. Mag oxide 400 mg daily FAMILY HISTORY Denies premature coronary artery disease or sudden cardiac within the family. SOCIAL HISTORY The patient currently resides at a halfway. It appears that he has mostly bedridden. He denies tobacco, alcohol or drugs. REVIEW OF SYSTEMS 14 systems were reviewed in the initial history and physical and pertinent positives and negatives as above, otherwise negative. PHYSICAL EXAMINATION VITAL SIGNS: Temperature 97.9, heart rate 74, blood pressure 126/80, respirations 18, pulse ox 96% on room air. GENERAL: The patient appears in no acute distress, alert and awake. Extraocular muscles intact. Mucous membranes moist. NECK: Supple. No JVD at 45 degrees. No carotid bruits heard bilaterally. Carotid upstroke is brisk in nature. HEART: Regular rate and rhythm. Positive first and second heart sounds with no murmurs, gallops or rubs. LUNGS: Clear to auscultation bilaterally. No wheezes, rales or rhonchi. ABDOMEN: Soft, nontender, nondistended. No organomegaly noted. EXTREMITIES: Show no clubbing, cyanosis or edema. Femoral and distal pulses intact bilaterally. SKIN: Warm, dry and intact. OSTEOPATHIC: No kyphoscoliosis, scoliosis, lordosis or paraspinal tender points. IMPRESSION 1. Nonsustained ventricular tachycardia which the patient is asymptomatic. 2. Cholangitis with current cholecystostomy tube. 3. Multiple TIAs and cerebrovascular accidents. RECOMMENDATIONS 1. Mr. Renteria appeared to have a short run of nonsustained VT for which he was asymptomatic and hemodynamically stable. 2. Electrolytes were checked and he was given a small amount of potassium to keep his potassium level above 4. 3. We will check a 2-D echo to look at his overall left ventricular function, cardiac structure and possible valvulopathies. 4. His nonsustained ventricular tachycardia may be due to an increase in sympathetic drive due to his overall illness. I do not believe further testing with a stress test or cardiac catheterization will change his overall management. It is felt that the patient should undergo a lap cholecystectomy as he was previously septic due to this. 5. I spoke to Dr. Souza about obtaining echo and discussed about him going to surgery later in the afternoon tomorrow after his echo is read. 6. Further recommendations will be made throughout the hospital course. Thank you for allowing me to see to Dylon Renteria. If there are any questions, please do not hesitate to call. Harlan Atwood DO VGP/DJL /12:33 AM /6:32 AM AIDA
[2016-11-14] MEDS: DOCUSATE SODIUM 50 MG/SENNA 8.6 MG TAB PO SCH ×2 (07:44→20:25)
[2016-11-14] MEDS: SODIUM CHLORIDE 0.9% FLUSH 5 ML FLUSH IV FLUSH SCH ×2 (08:23→20:22)
[2016-11-14] MEDS: DEXTROSE 5%-LACTATED RING INJ 1,000 ML IV SCH ×3 (10:00→20:25)
--- NOTE | 2016-11-14 10:41 | HHI.PR ---
Subjective Remarks Patient seen in follow-up for cholangitis, nonsustained asymptomatic SVT Patient reports that he is feeling well. Pain is controlled. No chest pain or shortness of breath. No episodes of palpitations. Objective Vitals Vital Signs Date Time Temp Pulse Resp B/P Pulse Ox O2 Delivery O2 Flow Rate FiO2 11/14/16 10:20 64 11/14/16 10:20 Room Air 11/14/16 09:35 64 11/14/16 08:57 97.5 68 18 129/73 97 11/14/16 04:00 98.2 70 18 122/76 97 11/14/16 00:00 98.4 72 18 118/65 97 11/13/16 20:00 97.9 74 18 126/80 96 11/13/16 19:45 Room Air 11/13/16 16:00 97.8 71 20 129/78 96 11/13/16 12:00 97.5 65 20 117/72 96 I/O 11/13/16 11/13/16 11/13/16 11/14/16 11/14/16 11/14/16 07:00 15:00 23:00 07:00 15:00 23:00 Intake Total 100 ml 480 ml 110 ml Output Total 350 ml 1250 ml 900 ml Balance -250 ml -770 ml -790 ml Intake Oral 100 ml 480 ml 110 ml Output Urine Total 350 ml 1250 ml 900 ml # Bowel Movements 0 0 Result Diagram: 11/13/16 0716 11/13/16 0716 Imaging Last Impressions Abdomen X-Ray 11/13/16 0000 Signed Impressions: Service Date/Time: Sunday, November 13, 2016 14:10 - CONCLUSION: 1. Cholecystostomy tube appears in satisfactory position. Ramon Snow MD Chest X-Ray 11/08/16 0600 Signed Impressions: Service Date/Time: Tuesday, November 08, 2016 05:24 - CONCLUSION: Mild left lung base atelectasis and/or infiltrate is seen. Faiza Vasquez MD Abdomen/Pelvis CT 11/06/16 1702 Signed Impressions: Service Date/Time: Sunday, November 06, 2016 18:37 - CONCLUSION: 1. Dilated gallbladder with cholelithiasis and inflammatory changes likely acute cholecystitis. 2. Bibasilar densities likely atelectasis. Trey Watt MD Percutaneous Cholangiogram 11/06/16 0000 Signed Impressions: Service Date/Time: Sunday, November 06, 2016 20:58 - CONCLUSION: Uncomplicated percutaneous cholecystostomy as above. Eron Lawson MD Objective Remarks GENERAL: This is a well-nourished, well-developed patient, in no apparent distress. CARDIOVASCULAR: Normal rate and regular rhythm without murmurs, gallops, or rubs. RESPIRATORY: Good respiratory efforts. Breath sounds equal and clear to auscultation bilaterally. GASTROINTESTINAL: Abdomen soft, non-tender, cholecystostomy drain in place. MUSCULOSKELETAL: Extremities without cyanosis, or edema. NEURO: Alert & Oriented. Normal speech. Moves all ext x4 PSYCH: Appropriate mood and affect. Procedures Percutaneous cholecystostomy tube placement A/P Assessment and Plan 56 year old male admitted with cholangitis s/p cholecystostomy tube placement. Cholangitis: - General surgery following. Plan for lap amol today. - NPO. pain control. - Continue Zosyn. Blood cultures negative. - Continue IV fluid Nonsustained V. tach: Asymptomatic. Patient evaluated by cardiology. Potassium slightly low, replaced. - Patient cleared for surgery. Moderate Cardiovascular risk. GI prophylaxis: Stool softener PRN constipation. DVT PPx: SCDs DW Lazara Lawrence MD Nov 14, 2016 10:40
--- NOTE | 2016-11-14 10:47 | PD.CARD.PN ---
Subjective Subjective Remarks No chest pain, no shortness of breath, no palpitations over night Objective Medications Current Medications Medications (Trade) Dose Ordered Sig/Maninder Route Start Time Stop Time Status Last Admin (D50w (Vial) Inj) 25 ml UNSCH PRN IV PUSH 11/06/16 19:30 (NovoLIN R SUPPLEMENTAL SCALE) 1 Q6HR SQ 11/07/16 00:00 (NS Flush) 2 ml UNSCH PRN IV FLUSH 11/06/16 21:30 (NS Flush) 2 ml BID IV FLUSH 11/07/16 09:00 11/14/16 08:23 (Tylenol) 650 mg Q6H PRN PO 11/06/16 21:30 (Zofran Inj) 4 mg Q6H PRN IV 11/06/16 21:30 (Kimber-Colace) 2 tab BID PO 11/07/16 09:00 11/11/16 22:36 (Heparin Inj) 5,000 units Q8H SQ 11/06/16 21:30 Hold 11/13/16 14:38 Miscellaneous Information 1 Q361D XX 11/06/16 21:30 (Chlorhexidine 2% Cloth) Taper DAILY@04 TOP 11/07/16 04:00 11/03/17 03:59 11/09/16 04:00 Chlorhexidine Gluconate 3 pack 3 pack UNSCH PRN TOP 11/06/16 21:30 (D5-Lr Inj) 1,000 ml @ 0 mls/hr Q8H IV 11/07/16 18:00 11/08/16 02:00 (Morphine Inj) 2 mg Q3H PRN IV PUSH 11/08/16 17:15 ([place] 5-325 Mg) 1 tab Q4H PRN PO 11/08/16 17:15 Acetaminophen/ Hydrocodone Bitart 2 tab 2 tab Q6H PRN PO 11/08/16 17:15 (Zosyn 3.375 Gm Premix) 50 ml @ 100 mls/hr Q8H IV 11/12/16 17:00 11/14/16 08:24 Vital Signs / I&O Vital Signs Date Time Temp Pulse Resp B/P Pulse Ox O2 Delivery O2 Flow Rate FiO2 11/14/16 10:20 64 11/14/16 10:20 Room Air 11/14/16 09:35 64 11/14/16 08:57 97.5 68 18 129/73 97 11/14/16 04:00 98.2 70 18 122/76 97 11/14/16 00:00 98.4 72 18 118/65 97 11/13/16 20:00 97.9 74 18 126/80 96 11/13/16 19:45 Room Air 11/13/16 16:00 97.8 71 20 129/78 96 11/13/16 12:00 97.5 65 20 117/72 96 I/O 11/13/16 11/13/16 11/13/16 11/14/16 11/14/16 11/14/16 06:59 14:59 22:59 06:59 14:59 22:59 Intake Total 100 ml 480 ml 110 ml Output Total 350 ml 1250 ml 900 ml Balance -250 ml -770 ml -790 ml Intake Oral 100 ml 480 ml 110 ml Output Urine Total 350 ml 1250 ml 900 ml # Bowel Movements 0 0 Physical Exam GENERAL: NAD SKIN: Warm and dry. HEAD: Atraumatic. Normocephalic. EYES: Pupils equal and round. No scleral icterus. No injection or drainage. ENT: No nasal bleeding or discharge. Mucous membranes pink and moist. NECK: Trachea midline. No JVD. CARDIOVASCULAR: Regular rate and rhythm. +S1S2 RESPIRATORY: No accessory muscle use. Clear to auscultation. Breath sounds equal bilaterally. GASTROINTESTINAL: Abdomen soft, non-tender, nondistended. Hepatic and splenic margins not palpable. MUSCULOSKELETAL: Extremities without clubbing, cyanosis, or edema. No obvious deformities. NEUROLOGICAL: Awake and alert. 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
--- NOTE | 2016-11-14 11:55 | EC ---
Study Study Date:11/14/2016 STUDY CONCLUSIONS SUMMARY - Left ventricle: The cavity size was normal. Wall thickness was normal. Systolic function was normal. The estimated ejection fraction was in the range of 55% to 60%. Wall motion was normal; there were no regional wall motion abnormalities. - Aortic valve: Valve area: 1.26cm^2(VTI). Valve area: 1.15cm^2 (Vmax). If LV function is below 40, please consider prescribing an ACEI or ARB or document rationale for non-use. PROCEDURE DATA STUDY STATUS: Elective. Procedure: Transthoracic echocardiography. Image quality was good. Scanning was performed from the parasternal, apical, and subcostal acoustic windows. Study completion: The patient tolerated the procedure well. Transthoracic echocardiography. M-mode, complete 2D, complete spectral Doppler, and color Doppler. Height: Height: 72in. Weight: Weight: 221.5lb. Body mass index: BMI: 30.1kg/m^2. Body surface area: BSA: 2.23m^2. Patient status: Inpatient. CARDIAC ANATOMY LEFT VENTRICLE: The cavity size was normal. Wall thickness was normal. Systolic function was normal. The estimated ejection fraction was in the range of 55% to 60%. Wall motion was normal; there were no regional wall motion abnormalities. AORTIC VALVE: Trileaflet; normal thickness leaflets. Doppler: Transvalvular velocity was within the normal range. There was no stenosis. No regurgitation. Valve area: 1.26cm^2(VTI). Indexed valve area: 0.57cm^2/m^2 (VTI). Valve area: 1.15cm^2 (Vmax). Indexed valve area: 0.52cm^2/m^2 (Vmax). Mean gradient: 3mm Hg (S). AORTA: Aortic root: The aortic root was normal in size. MITRAL VALVE: Structurally normal valve. Doppler: Transvalvular velocity was within the normal range. There was no evidence for stenosis. Trace regurgitation. LEFT ATRIUM: The atrium was at the upper limits of normal in size. RIGHT VENTRICLE: The cavity size was normal. Wall thickness was normal. PULMONIC VALVE: Doppler: Transvalvular velocity was within the normal range. There was no evidence for stenosis. No regurgitation. TRICUSPID VALVE: Structurally normal valve. Doppler: Transvalvular velocity was within the normal range. No regurgitation. PULMONARY ARTERY: The main pulmonary artery was normal-sized. Systolic pressure was within the normal range. RIGHT ATRIUM: The atrium was normal in size. PERICARDIUM: There was no pericardial effusion. SYSTEMIC VEINS: Inferior vena cava: The vessel was normal in size. Patient weight: 221.5lb _Ejection fraction:_ 65-75% _Fractional shortening:_ 32% up to 5Kg 5-11.5Kg 11.6-22.9Kg 23-45Kg 45-57Kg Aortic Root 7-13 <17 13-22 17-27 17-27 LA diam 6-13 <23 24-38 33-47 37-40 RVID 10-17 7-15 7-15 7-18 8-17 LVIDd 12-22 <32 24-38 33-47 37-40 LVPW 2-4 3-6 5-7 6-8 7-8 IVS 2-4 3-6 5-7 6-8 7-8 BASIC MEASUREMENTS ADULT NORMAL Left ventricle LV internal dimension, ED, chordal *39.6 mm 43-52 level, PLAX LV internal dimension, ES, chordal 27.2 mm 23-38 level, PLAX Fractional shortening, chordal level, 31 % >29 PLAX LV posterior wall thickness, ED 14.5 mm IVS/LVPW ratio, ED 1 <1.3 Ventricular septum Septal thickness, ED 14.5 mm Aortic valve Leaflet separation 18 mm 15-26 Aorta Root diameter, ED 33 mm Left atrium Anterior-posterior dimension 40 mm Anterior-posterior dimension index 1.79 cm/m^2 <2.2 BASIC MEASUREMENTS ADULT NORMAL Aortic valve Leaflet separation 18 mm 15-26 DOPPLER MEASUREMENTS ADULT NORMAL Aortic valve Peak velocity, S 109 cm/s Mean velocity, S 76 cm/s VTI, S 21.6 cm Mean gradient, S 3 mm Hg Valve area, VTI 1.26 cm^2 Valve area index, VTI 0.57 cm^2/m^2 Valve area, Vmax 1.15 cm^2 Valve area index, Vmax 0.52 cm^2/m^2 Mitral valve Peak E-wave velocity 53.8 cm/s Peak A-wave velocity 71.1 cm/s Deceleration time *278 ms 150-230 Peak E/A ratio 0.8 Pulmonic valve Peak velocity, S 54.2 cm/s LEGEND: Mean values are shown as u=mean value. Asterisk (*) grubbs values outside specified normal range. Prepared and signed by Michael Foy [id number]
[2016-11-14] MEDS ORDERED: ONDANSETRON HCL 4 MG/2 ML VIAL IV PUSH ONE (12:00)
[2016-11-14] MEDS ORDERED: LACTATED RINGER'S 1000 ML INJ 1,000 ML IV ONE (12:00)
[2016-11-14] MEDS ORDERED: NEOSTIGMINE 3 MG/3 ML SYR IV ONE (12:00)
[2016-11-14] MEDS ORDERED: PROPOFOL 200 MG/20 ML AMP IV ONE (12:00)
[2016-11-14] MEDS ORDERED: PHENYLEPH/NS 1000 MCG/10 ML SYR IV ONE (12:00)
[2016-11-14] MEDS ORDERED: ePHEDrine/NS 25 MG/5 ML SYR IV ONE (12:00)
[2016-11-14] MEDS ORDERED: POTASSIUM PHOSPHATE INJ 15 MMOL in SODIUM CHLORIDE 0.9% INJ 150 ML IV ONE (12:00)
[2016-11-14] MEDS ORDERED: BUPIVACAINE/EPINEPHRINE 0.25% PF 10 ML VIAL ONE (12:42)
[2016-11-14] MEDS ORDERED: FAMOTIDINE 20 MG/2 ML VIAL ONE (13:30)
[2016-11-14] MEDS ORDERED: MIDAZOLAM HCL 2 MG/2 ML VIAL ONE (13:30)
[2016-11-14] MEDS ORDERED: fentaNYL CITRATE 250 MCG/5 ML AMP ONE (15:10)
[2016-11-14] MEDS ORDERED: *RESP: ALBUTEROL 2.5 MG/3 ML NEB (PRN) PERIprocedural Use ONLY NEB ONE (16:22)
--- NOTE | 2016-11-14 16:34 | HHI.PR ---
cc: Luciano Souza MD Immediate Post Op Note Procedure Date: Nov 14, 2016 Pre Op Diagnosis: Acute cholecystitis Post Op Diagnosis: Gangrenous cholecystitis Surgeon: Luciano Souza [employer] Operator(s): ANTHONY Strong Procedure: Laparoscopic cholecystectomy Complications: None Specimen(s) removed: Gallbladder and stones to pathology Estimated blood loss: 200 ml Anesthesia: General Drains: ANTONIO IVF (1300 ml) Patient to: PACU Patient Condition: Good Date/Time of Procedure: SEE SURGICAL CARE RECORD Luciano Souza MD Nov 14, 2016 16:34
[2016-11-14] MEDS ORDERED: *morphine SULFATE 8 MG/ML PERIprocedure ONLY ONE (16:42)
[2016-11-14] MEDS ORDERED: LABETALOL HCL 100 MG/20 ML VIAL ONE (16:52)
[2016-11-14] MEDS ORDERED: DO NOT ADM ANY ANTICOAGULANT DRUGS XX PRN (17:15)
--- NOTE | 2016-11-14 17:27 | RADRPT ---
EXAM DATE/TIME: 11/14/2016 17:02 [facility] COMPARISON: CHEST SINGLE AP, November 08, 2016, 5:24. INDICATIONS : SOB MEDICAL HISTORY : Hypertension. Cerebrovascular disease. SURGICAL HISTORY : Cholecystectomy. ENCOUNTER: Subsequent ACUITY: 3 days PAIN SCORE: 0/10 LOCATION: chest FINDINGS: A single view of the chest demonstrates the lungs to be symmetrically hypoinflated without evidence o f mass, infiltrate or effusion. The cardiomediastinal contours are unremarkable. Osseous structures are intact. CONCLUSION: No acute disease. Linda Jaime MD on November 14, 2016 at 17:24 Board Certified Radiologist. This report was verified electronically.
[2016-11-14 17:53] LABS: REVIEW FLAG FINAL
[2016-11-14 17:54] LABS: INTERNATIONAL NORMALIZED RATIO 1.1 RATIO; PROTHROMBIN TIME - PATIENT 11.7 SEC (9.8-11.6)
[2016-11-14 18:18] LABS: ALT (GPT) 60 U/L (12-78); ANION GAP 10 MEQ/L (5-15); AST (GOT) 49 U/L (15-37); BICARBONATE 22.9 MEQ/L (21.0-32.0); BLOOD UREA NITROGEN 20 MG/DL (7-18); CHLORIDE 107 MEQ/L (98-107); GLOMERULAR FILTRATION RATE 48 ML/MIN (>89); POTASSIUM 3.9 MEQ/L (3.5-5.1); SODIUM (NA) 140 MEQ/L (136-145)
[2016-11-14 18:20] LABS: ALKALINE PHOSPHATASE 147 U/L (45-117); TOTAL BILIRUBIN ADULT 0.5 MG/DL (0.2-1.0)
[2016-11-14 18:35] LABS: AUTOMATED NEUTROPHIL # 23.3 TH/MM3 (1.8-7.7); BASOPHIL % 0.2 % (0.0-2.0); EOSINOPHIL # 0.1 TH/MM3 (0-0.4); EOSINOPHIL % 0.4 % (0.0-4.0); HEMATOCRIT 36.7 % (39.0-51.0); HEMO FLAGS DIFF FINAL; LYMPH % 5.1 % (9.0-44.0); LYMPHOCYTE # 1.3 TH/MM3 (1.0-4.8); MEAN CELL VOLUME 88.2 FL (80.0-100.0); MEAN CORPUSCULAR HEMOGLOBIN 28.3 PG (27.0-34.0); MEAN CORPUSCULAR HGB CONC 32.1 % (32.0-36.0); NEUT % 90.3 % (16.0-70.0); PLATELET COUNT 407 TH/MM3 (150-450); RED BLOOD COUNT 4.17 MIL/MM3 (4.50-5.90); RED CELL DISTRIBUTION WIDTH 16.1 % (11.6-17.2); WHITE BLOOD COUNT 25.8 TH/MM3 (4.0-11.0)
[2016-11-15] VITALS (10 sets, daily range): BP systolic 111–129; BP diastolic 65–77; PULSE 68–82; RESP 18–20; TEMP 97–98; O2SAT 92–98
[2016-11-15] MEDS: PIPERACIL-TAZO 3.375 GM PREMIX 50 ML IV SCH ×3 (00:22→16:14)
[2016-11-15] MEDS: CHLORHEXIDINE GLUCONATE 2 % 1 PACK (2 CLOTHS) TOP SCH (04:00)
[2016-11-15] MEDS: INSULIN NovoLIN REGULAR SUPPLEMENTAL SCALE SQ SCH ×3 (05:01→11:08)
[2016-11-15] MEDS: DOCUSATE SODIUM 50 MG/SENNA 8.6 MG TAB PO SCH ×2 (07:04→21:36)
[2016-11-15] MEDS: SODIUM CHLORIDE 0.9% FLUSH 5 ML FLUSH IV FLUSH SCH ×2 (07:24→21:37)
[2016-11-15 07:51] LABS: HEMATOCRIT 34.2 % (39.0-51.0); MEAN CELL VOLUME 86.9 FL (80.0-100.0); MEAN CORPUSCULAR HEMOGLOBIN 28.1 PG (27.0-34.0); MEAN CORPUSCULAR HGB CONC 32.4 % (32.0-36.0); PLATELET COUNT 343 TH/MM3 (150-450); RED BLOOD COUNT 3.94 MIL/MM3 (4.50-5.90); RED CELL DISTRIBUTION WIDTH 16.2 % (11.6-17.2); REVIEW FLAG FINAL; WHITE BLOOD COUNT 17.7 TH/MM3 (4.0-11.0)
[2016-11-15] MEDS: DEXTROSE 5%-LACTATED RING INJ 1,000 ML IV SCH (07:59)
[2016-11-15 08:18] LABS: BICARBONATE 24.1 MEQ/L (21.0-32.0)
--- NOTE | 2016-11-15 10:30 | HHI.PR ---
Subjective Subjective Notes Feels better today Hungry Objective Vitals/I&O Vital Signs Date Time Temp Pulse Resp B/P Pulse Ox O2 Delivery O2 Flow Rate FiO2 11/15/16 08:19 92 11/15/16 08:04 Nasal Cannula 2.00 21 11/15/16 07:53 68 11/15/16 05:00 98.0 18 111/65 Labs Laboratory Tests Test 11/14/16 11/15/16 17:11 06:22 Hemoglobin 11.7 11.1 Hematocrit 36.0 34.2 Prothrombin Time 11.7 Prothromb Time International 1.1 Ratio Sodium Level 140 141 Potassium Level 3.9 4.0 Chloride Level 107 107 Carbon Dioxide Level 22.9 24.1 Anion Gap 10 10 Blood Urea Nitrogen 20 19 Creatinine 1.50 1.64 Estimat Glomerular Filtration 48 44 Rate Random Glucose 134 104 Calcium Level 8.6 8.1 Total Bilirubin 0.5 Aspartate Amino Transf 49 (AST/SGOT) Alanine Aminotransferase 60 (ALT/SGPT) Alkaline Phosphatase 147 Total Protein 7.3 Albumin 3.2 White Blood Count 17.7 Red Blood Count 3.94 Mean Corpuscular Volume 86.9 Mean Corpuscular Hemoglobin 28.1 Mean Corpuscular Hemoglobin 32.4 Concent Red Cell Distribution Width 16.2 Platelet Count 343 Mean Platelet Volume 7.6 Cardiovascular: Regular Lungs: Clear Abdomen: Other (lap sites c/d/i; ANTONIO with SS drainage ) Extremities: No edema Narrative Exam ANTONIO output 30ml/8hr A/P Assessment and Plan 56 year old male with cholangitis with cholecystectomy tube placement on admission; POD1 lap amol -Labs post op stable; but WBC's remain elevated (not unexpected) -Advance to heart healthy diet -OOB and mobilize -Pain control -Plan for DC back to [facility] tomorrow if stable overnight Attending Note - Dr. Souza Abdomen soft; steristrips with minimal drainage Can remove drain prior to discharge if output low today The exam, history, and the medical decision-making described in the above note were completed with the assistance of the mid-level provider. I reviewed and agree with the findings presented. I attest that I had a [id number] encounter with the patient on the same day, and personally performed and documented my assessment and findings in the medical record. Brianne Crum Nov 15, 2016 10:30 Luciano Souza MD Nov 15, 2016 10:45
[2016-11-15] MEDS ORDERED: PILL SPLITTER OTHER PRN (11:00)
[2016-11-15] MEDS: FAMOTIDINE 20 MG TAB PO SCH ×2 (11:06→21:36)
--- NOTE | 2016-11-15 13:17 | HHI.PR ---
Subjective Remarks Patient seen in follow-up for cholangitis, nonsustained asymptomatic SVT Patient reports that he is feeling okay. Tolerating a diet. Pain is controlled. Objective Vitals Vital Signs Date Time Temp Pulse Resp B/P Pulse Ox O2 Delivery O2 Flow Rate FiO2 11/15/16 13:11 18 11/15/16 08:19 92 11/15/16 08:04 Nasal Cannula 2.00 21 11/15/16 07:53 68 11/15/16 05:00 98.0 75 18 111/65 97 11/15/16 00:11 97 Nasal Cannula 2.00 11/14/16 23:35 98.0 80 18 117/79 98 11/14/16 20:42 98.0 82 18 128/71 98 11/14/16 19:57 77 11/14/16 19:30 Room Air 11/14/16 17:30 98.5 78 16 144/90 96 Nasal Cannula 2.5 11/14/16 17:15 74 15 129/85 94 Nasal Cannula 4 11/14/16 17:00 87 15 166/91 94 Simple Mask 6 11/14/16 16:45 83 15 149/100 97 Simple Mask 6 11/14/16 16:26 97.4 64 15 153/98 97 Simple Mask 6 I/O 11/14/16 11/14/16 11/14/16 11/15/16 11/15/16 11/15/16 07:00 15:00 23:00 07:00 15:00 23:00 Intake Total 356 ml 1200 ml 770 ml Output Total 750 ml 280 ml Balance 356 ml 450 ml 490 ml Intake Oral 0 ml 120 ml IV Total 356 ml 650 ml Other 1200 ml Output Urine Total 550 ml 250 ml Drainage Total 30 ml Estimated Blood Loss 200 ml # Bowel Movements 0 0 Result Diagram: 11/15/1662111/15/16621 Objective Remarks GENERAL: This is a well-nourished, well-developed patient, in no apparent distress. CARDIOVASCULAR: Normal rate and regular rhythm without murmurs, gallops, or rubs. RESPIRATORY: Good respiratory efforts. Breath sounds equal and clear to auscultation bilaterally. GASTROINTESTINAL: Abdomen soft, non-tender, there is a drain in place on the right side of the abdomen. MUSCULOSKELETAL: Extremities without cyanosis, or edema. NEURO: Alert & Oriented. Normal speech. Moves all ext x4 PSYCH: Appropriate mood and affect. Procedures Percutaneous cholecystostomy tube placement A/P Assessment and Plan 56 year old male admitted with cholangitis s/p cholecystostomy tube placement. Cholangitis: - General surgery following. Status post cholecystectomy. Patient has a drain in place - Continue Zosyn. Blood cultures negative. - Continue IV fluid - Surgery is planning to remove drain if low output. Nonsustained V. tach: Asymptomatic. Patient evaluated by cardiology. Potassium slightly low, replaced. - Cardiology followed the patient. Patient was cleared for surgery. Moderate Cardiovascular risk. Chronic renal insufficiency: Continue IV fluid. Avoid nephrotoxins. Follow BMP in a.m. GI prophylaxis: Stool softener PRN constipation. DVT PPx: Lazara Vargas RN, MD Nov 15, 2016 13:17
--- NOTE | 2016-11-15 16:50 | PD.CARD.PN ---
Subjective Subjective Remarks No chest pain, no shortness of breath Objective Medications Current Medications Medications (Trade) Dose Ordered Sig/Maninder Route Start Time Stop Time Status Last Admin (NS Flush) 2 ml UNSCH PRN IV FLUSH 11/06/16 21:30 (NS Flush) 2 ml BID IV FLUSH 11/07/16 09:00 11/15/16 07:24 (Tylenol) 650 mg Q6H PRN PO 11/06/16 21:30 (Zofran Inj) 4 mg Q6H PRN IV 11/06/16 21:30 (Kimber-Colace) 2 tab BID PO 11/07/16 09:00 11/11/16 22:36 (Heparin Inj) 5,000 units Q8H SQ 11/06/16 21:30 Hold 11/13/16 14:38 Miscellaneous Information 1 [id number] XX 11/06/16 21:30 (Chlorhexidine 2% Cloth) Taper DAILY@04 TOP 11/07/16 04:00 11/03/17 03:59 11/09/16 04:00 Chlorhexidine Gluconate 3 pack 3 pack UNSCH PRN TOP 11/06/16 21:30 (D5-Lr Inj) 1,000 ml @ 75 mls/hr [id number] IV 11/07/16 18:00 11/15/16 07:59 (Morphine Inj) 2 mg Q3H PRN IV PUSH 11/08/16 17:15 (Seffner 5-325 Mg) 1 tab Q4H PRN PO 11/08/16 17:15 11/15/16 12:26 Acetaminophen/ Hydrocodone Bitart 2 tab 2 tab Q6H PRN PO 11/08/16 17:15 (Zosyn 3.375 Gm Premix) 50 ml @ 100 mls/hr Q8H IV 11/12/16 17:00 11/19/16 17:00 11/15/16 16:14 Miscellaneous Information ALL NURSING DEPARTME... UNSCH PRN XX 11/14/16 17:15 11/15/16 17:14 (Pepcid) 10 mg BID PO 11/15/16 12:00 11/15/16 11:06 (Pill Splitter) 1 ea UNSCH PRN OTHER 11/15/16 11:00 Vital Signs / I&O Vital Signs Date Time Temp Pulse Resp B/P Pulse Ox O2 Delivery O2 Flow Rate FiO2 11/15/16 13:11 18 11/15/16 12:00 97.0 80 20 119/75 95 11/15/16 08:19 92 11/15/16 08:04 Nasal Cannula 2.00 21 11/15/16 07:53 68 11/15/16 05:00 98.0 75 18 111/65 97 11/15/16 00:11 97 Nasal Cannula 2.00 11/14/16 23:35 98.0 80 18 117/79 98 11/14/16 20:42 98.0 82 18 128/71 98 11/14/16 19:57 77 11/14/16 19:30 Room Air 11/14/16 17:30 98.5 78 16 144/90 96 Nasal Cannula 2.5 11/14/16 17:15 74 15 129/85 94 Nasal Cannula 4 11/14/16 17:00 87 15 166/91 94 Simple Mask 6 I/O 11/14/16 11/14/16 11/14/16 11/15/16 11/15/16 11/15/16 07:00 15:00 23:00 07:00 15:00 23:00 Intake Total 356 ml 1200 ml 770 ml 987 ml Output Total 750 ml 280 ml 15 ml Balance 356 ml 450 ml 490 ml 972 ml Intake Oral 0 ml 120 ml 987 ml IV Total 356 ml 650 ml Other 1200 ml Output Urine Total 550 ml 250 ml Drainage Total 30 ml 15 ml Estimated Blood Loss 200 ml # Bowel Movements 0 0 Physical Exam GENERAL: NAD SKIN: Warm and dry. HEAD: Atraumatic. Normocephalic. EYES: Pupils equal and round. No scleral icterus. No injection or drainage. ENT: No nasal bleeding or discharge. Mucous membranes pink and moist. NECK: Trachea midline. No JVD. CARDIOVASCULAR: Regular rate and rhythm. +S1S2 RESPIRATORY: No accessory muscle use. Clear to auscultation. Breath sounds equal bilaterally. GASTROINTESTINAL: Abdomen soft, non-tender, nondistended. Hepatic and splenic margins not palpable. MUSCULOSKELETAL: Extremities without clubbing, cyanosis, or edema. No obvious deformities. NEUROLOGICAL: Awake and alert. Laboratory Laboratory Tests Test 11/14/16 11/15/16 17:11 06:22 Hemoglobin 11.7 GM/DL 11.1 GM/DL Hematocrit 36.0 % 34.2 % Prothrombin Time 11.7 SEC Prothromb Time International 1.1 RATIO Ratio Sodium Level 140 MEQ/L 141 MEQ/L Potassium Level 3.9 MEQ/L 4.0 MEQ/L Chloride Level 107 MEQ/L 107 MEQ/L Carbon Dioxide Level 22.9 MEQ/L 24.1 MEQ/L Anion Gap 10 MEQ/L 10 MEQ/L Blood Urea Nitrogen 20 MG/DL 19 MG/DL Creatinine 1.50 MG/DL 1.64 MG/DL Estimat Glomerular Filtration 48 ML/MIN 44 ML/MIN Rate Random Glucose 134 MG/DL 104 MG/DL Calcium Level 8.6 MG/DL 8.1 MG/DL Total Bilirubin 0.5 MG/DL Aspartate Amino Transf 49 U/L (AST/SGOT) Alanine Aminotransferase 60 U/L (ALT/SGPT) Alkaline Phosphatase 147 U/L Total Protein 7.3 GM/DL Albumin 3.2 GM/DL White Blood Count 17.7 TH/MM3 Red Blood Count 3.94 MIL/MM3 Mean Corpuscular Volume 86.9 FL Mean Corpuscular Hemoglobin 28.1 PG Mean Corpuscular Hemoglobin 32.4 % Concent Red Cell Distribution Width 16.2 % Platelet Count 343 TH/MM3 Mean Platelet Volume 7.6 FL Assessment and Plan Problem List: (1) Acute cholecystitis due to biliary calculus (2) Broca's aphasia (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
[2016-11-15] MEDS: HEPARIN SODIUM - SQ 10,000 UNITS/ML VIAL SQ SCH (21:36)
[2016-11-16] VITALS (9 sets, daily range): BP systolic 134–153; BP diastolic 74–86; PULSE 70–82; RESP 16–18; TEMP 97.5–98.2; O2SAT 92–97
[2016-11-16] MEDS: PIPERACIL-TAZO 3.375 GM PREMIX 50 ML IV SCH ×3 (00:33→16:10)
[2016-11-16] MEDS: DEXTROSE 5%-LACTATED RING INJ 1,000 ML IV SCH ×2 (00:33→13:16)
[2016-11-16] MEDS: CHLORHEXIDINE GLUCONATE 2 % 1 PACK (2 CLOTHS) TOP SCH (03:45)
[2016-11-16] MEDS: HEPARIN SODIUM - SQ 10,000 UNITS/ML VIAL SQ SCH ×3 (05:03→21:14)
[2016-11-16] MEDS: DOCUSATE SODIUM 50 MG/SENNA 8.6 MG TAB PO SCH ×2 (07:51→21:14)
[2016-11-16] MEDS: SODIUM CHLORIDE 0.9% FLUSH 5 ML FLUSH IV FLUSH SCH ×2 (07:51→21:15)
[2016-11-16] MEDS: FAMOTIDINE 20 MG TAB PO SCH ×2 (07:52→21:15)
--- NOTE | 2016-11-16 12:58 | HHI.PR ---
Subjective Remarks Patient has no new complaints. He denies abdominal pain. He reports that he is passing gas. No bowel movement yet. Discussed with nursing. Objective Vitals Vital Signs Date Time Temp Pulse Resp B/P Pulse Ox O2 Delivery O2 Flow Rate FiO2 11/16/16 12:00 97.9 75 17 153/74 95 11/16/16 09:12 70 11/16/16 08:08 92 21 11/16/16 08:00 97.5 71 18 145/79 97 11/16/16 07:03 Room Air 11/16/16 04:03 97.7 79 18 144/83 93 11/15/16 23:40 97.5 71 18 128/73 96 11/15/16 21:36 96 11/15/16 21:00 Room Air 11/15/16 20:42 97.9 76 18 129/77 96 11/15/16 19:20 82 11/15/16 16:00 97.2 74 20 119/71 98 11/15/16 13:11 18 I/O 11/15/16 11/15/16 11/15/16 11/16/16 11/16/16 11/16/16 07:00 15:00 23:00 07:00 15:00 23:00 Intake Total 770 ml 1587 ml 1010 ml 650 ml Output Total 280 ml 265 ml 500 ml 315 ml Balance 490 ml 1322 ml 510 ml 335 ml Intake Oral 120 ml 1587 ml 360 ml 0 ml IV Total 650 ml 650 ml 650 ml Output Urine Total 250 ml 250 ml 500 ml 300 ml Drainage Total 30 ml 15 ml 15 ml # Bowel Movements 0 0 0 0 Result Diagram: 11/15/1662111/15/16621 Imaging Last Impressions Chest X-Ray 11/14/16 0000 Signed Impressions: Service Date/Time: October 17:02 - CONCLUSION: No acute disease. Linda Jaime MD Abdomen X-Ray 11/13/16 0000 Signed Impressions: Service Date/Time: Sunday, November 13, 2016 14:10 - CONCLUSION: 1. Cholecystostomy tube appears in satisfactory position. Ramon Snow MD Abdomen/Pelvis CT 11/06/16 1702 Signed Impressions: Service Date/Time: Sunday, November 06, 2016 18:37 - CONCLUSION: 1. Dilated gallbladder with cholelithiasis and inflammatory changes likely acute cholecystitis. 2. Bibasilar densities likely atelectasis. Trey Watt MD Percutaneous Cholangiogram 11/06/16 0000 Signed Impressions: Service Date/Time: Friday, November 06, 2016 20:58 - CONCLUSION: Uncomplicated percutaneous cholecystostomy as above. Eron Lawson MD Objective Remarks GENERAL: This is a well-nourished, well-developed patient, in no apparent distress. CARDIOVASCULAR: Normal rate and regular rhythm without murmurs, gallops, or rubs. RESPIRATORY: Good respiratory efforts. Breath sounds equal and clear to auscultation bilaterally. GASTROINTESTINAL: Abdomen soft, non-tender, there is a drain in place on the right side of the abdomen. MUSCULOSKELETAL: Extremities without cyanosis, or edema. NEURO: Alert & Oriented. Normal speech. Moves all ext x4 PSYCH: Appropriate mood and affect. Procedures Percutaneous cholecystostomy tube placement A/P Assessment and Plan 56 year old male admitted with cholangitis s/p cholecystostomy tube placement. Cholangitis: - General surgery following. Status post cholecystectomy. Patient has a drain in place - Continue Zosyn. Blood cultures negative. - Surgery is planning to remove drain if low output. Nonsustained V. tach: Asymptomatic. Patient evaluated by cardiology. Potassium slightly low, replaced. - Cardiology followed the patient. Patient was cleared for surgery. Moderate Cardiovascular risk. Chronic renal insufficiency: Stable. Avoid nephrotoxins. GI prophylaxis: Stool softener PRN constipation. DVT PPx: SCDs DW Lazara Murrieta MD Nov 16, 2016 12:58 Lazara Mejia MD Nov 16, 2016 12:58
[2016-11-16 13:18] LABS: AUTOMATED NEUTROPHIL # 8.9 TH/MM3 (1.8-7.7); BASOPHIL % 0.3 % (0.0-2.0); EOSINOPHIL # 0.3 TH/MM3 (0-0.4); EOSINOPHIL % 2.5 % (0.0-4.0); HEMATOCRIT 31.6 % (39.0-51.0); HEMO FLAGS DIFF FINAL; LYMPH % 13.8 % (9.0-44.0); LYMPHOCYTE # 1.6 TH/MM3 (1.0-4.8); MEAN CELL VOLUME 86.8 FL (80.0-100.0); MEAN CORPUSCULAR HEMOGLOBIN 28.9 PG (27.0-34.0); MEAN CORPUSCULAR HGB CONC 33.3 % (32.0-36.0); MONO % 8.3 % (0.0-8.0); NEUT % 75.1 % (16.0-70.0); PLATELET COUNT 324 TH/MM3 (150-450); RED BLOOD COUNT 3.64 MIL/MM3 (4.50-5.90); RED CELL DISTRIBUTION WIDTH 15.8 % (11.6-17.2); WHITE BLOOD COUNT 11.8 TH/MM3 (4.0-11.0)
[2016-11-16 13:30] LABS: BICARBONATE 26.8 MEQ/L (21.0-32.0); POTASSIUM 3.8 MEQ/L (3.5-5.1)
--- NOTE | 2016-11-16 13:48 | HHI.PR ---
Subjective Subjective Notes Tolerating diet Reports moderate pain Objective Vitals/I&O Vital Signs Date Time Temp Pulse Resp B/P Pulse Ox O2 Delivery O2 Flow Rate FiO2 11/16/16 12:00 97.9 75 17 153/74 95 11/16/16 08:08 21 11/16/16 07:03 Room Air 11/15/16 08:04 2.00 Labs Laboratory Tests Test 11/16/16 12:23 White Blood Count 11.8 Red Blood Count 3.64 Hemoglobin 10.5 Hematocrit 31.6 Mean Corpuscular Volume 86.8 Mean Corpuscular Hemoglobin 28.9 Mean Corpuscular Hemoglobin 33.3 Concent Red Cell Distribution Width 15.8 Platelet Count 324 Mean Platelet Volume 8.0 Neutrophils (%) (Auto) 75.1 Lymphocytes (%) (Auto) 13.8 Monocytes (%) (Auto) 8.3 Eosinophils (%) (Auto) 2.5 Basophils (%) (Auto) 0.3 Neutrophils # (Auto) 8.9 Lymphocytes # (Auto) 1.6 Monocytes # (Auto) 1.0 Eosinophils # (Auto) 0.3 Basophils # (Auto) 0.0 CBC Comment DIFF FINAL Differential Comment Sodium Level 141 Potassium Level 3.8 Chloride Level 107 Carbon Dioxide Level 26.8 Anion Gap 7 Blood Urea Nitrogen 13 Creatinine 1.50 Estimat Glomerular Filtration 48 Rate Random Glucose 101 Calcium Level 8.1 Lungs: Clear Abdomen: Non-distended, Non-tender Narrative Exam ANTONIO output 10ml/8hr A/P Assessment and Plan 56 year old male with cholangitis with cholecystectomy tube placement on admission; POD#2 lap amol -Labs post op stable; but elevated WBC's decreased -Tolerating heart healthy diet -OOB and mobilize -Pain control -Plan for DC back to [facility] tomorrow if bed available -D/C drain today -D/C acevedo Discharge Planning Return to SNF 11/16 after lap amol 11/15 Luciano Souza MD Nov 16, 2016 13:48
[2016-11-17] VITALS (9 sets, daily range): BP systolic 103–157; BP diastolic 57–86; PULSE 60–81; RESP 16–60; TEMP 97.1–98.1; O2SAT 95–97
[2016-11-17] MEDS: PIPERACIL-TAZO 3.375 GM PREMIX 50 ML IV SCH ×3 (01:00→17:18)
[2016-11-17] MEDS: CHLORHEXIDINE GLUCONATE 2 % 1 PACK (2 CLOTHS) TOP SCH (04:00)
[2016-11-17] MEDS: HEPARIN SODIUM - SQ 10,000 UNITS/ML VIAL SQ SCH ×3 (06:17→21:46)
[2016-11-17] MEDS ORDERED: LACTULOSE SYRUP 20 GM/30 ML CUP PO ONE (09:15)
--- NOTE | 2016-11-17 09:18 | HHI.PR ---
Subjective Remarks Patient still has ANTONIO drain in. He has no new complaints. Pain is controlled. No BM since 11/13. GINO RN. Objective Vitals Vital Signs Date Time Temp Pulse Resp B/P Pulse Ox O2 Delivery O2 Flow Rate FiO2 11/17/16 08:00 98.0 66 20 157/81 96 11/17/16 04:00 97.8 65 16 140/86 95 11/17/16 00:00 97.9 72 18 148/80 96 11/16/16 20:35 94 11/16/16 20:20 Room Air 11/16/16 20:00 77 11/16/16 20:00 98.2 72 18 147/86 96 11/16/16 16:00 98.0 70 16 134/79 97 11/16/16 12:00 97.9 75 17 153/74 95 11/16/16 09:12 70 I/O 11/16/16 11/16/16 11/16/16 11/17/16 11/17/16 11/17/16 07:00 15:00 23:00 07:00 15:00 23:00 Intake Total 650 ml 1675 ml 240 ml 240 ml Output Total 315 ml 965 ml 15 ml Balance 335 ml 710 ml 240 ml 225 ml Intake Oral 0 ml 720 ml 240 ml 240 ml IV Total 650 ml 955 ml Output Urine Total 300 ml 950 ml Drainage Total 15 ml 15 ml 15 ml # Voids 2 1 # Bowel Movements 0 0 0 0 Result Diagram: 11/16/16 1223 11/16/16 1223 Objective Remarks GENERAL: This is a well-nourished, well-developed patient, in no apparent distress. CARDIOVASCULAR: Normal rate and regular rhythm without murmurs, gallops, or rubs. RESPIRATORY: Good respiratory efforts. Breath sounds equal and clear to auscultation bilaterally. GASTROINTESTINAL: Abdomen soft, non-tender, there is a ANTONIO drain in place on the right side of the abdomen. MUSCULOSKELETAL: Extremities without cyanosis, or edema. NEURO: Alert & Oriented. Normal speech. Moves all ext x4 PSYCH: Appropriate mood and affect. Procedures Percutaneous cholecystostomy tube placement Laparoscopic cholecystectomy A/P Assessment and Plan 56 year old male admitted with cholangitis s/p cholecystostomy tube placement. Patient underwent laparoscopic cholecystectomy. Cholangitis: - General surgery following. Status post cholecystectomy. ANTONIO drain not pulled yesterday per nursing due to confusion about whether it was put by IR. RN now aware it can be pulled per Gen surgery orders. Drain put it by IR was removed during surgery. - Continue Zosyn. Blood cultures negative. - Patient has cognitive deficits and will be going back to [facility]. Plan to DC tomorrow when all arrangements are made. Meds will need to be filled here prior to DC. Nonsustained V. tach: Asymptomatic. Patient evaluated by cardiology. Potassium slightly low, replaced. - Cardiology followed the patient. Patient was cleared for surgery. Moderate Cardiovascular risk. Chronic renal insufficiency: Stable. Avoid nephrotoxins. GI prophylaxis: Stool softener PRN constipation. Give a dose of Lactulose today. Continue Kimber colace. DVT PPx: SCDs DW flakeboard line tender Planning Plan to DC to [facility] tomorrow. Lazara Mejia MD Nov 17, 2016 09:18
[2016-11-17] MEDS ORDERED: MAGNESIUM HYDROXIDE SUSP 30 ML CUP PO PRN (09:30)
[2016-11-17] MEDS: SODIUM CHLORIDE 0.9% FLUSH 5 ML FLUSH IV FLUSH SCH ×2 (09:59→21:46)
[2016-11-17] MEDS: DOCUSATE SODIUM 50 MG/SENNA 8.6 MG TAB PO SCH ×2 (10:05→21:00)
[2016-11-17] MEDS: FAMOTIDINE 20 MG TAB PO SCH ×2 (10:05→21:46)
--- NOTE | 2016-11-17 22:09 | HHI.PR ---
Subjective Subjective Notes DAILY PROGRESS NOTE FOR SURGICAL ATTENDING, DR. ANKIT ROBERSON Tolerating diet Patient tells easy going home tomorrow Objective Vitals/I&O Vital Signs Date Time Temp Pulse Resp B/P Pulse Ox O2 Delivery O2 Flow Rate FiO2 11/17/16 20:00 97.8 61 18 139/83 96 11/17/16 19:32 Room Air 11/17/16 08:06 21 11/15/16 08:04 2.00 Labs Laboratory Tests Test 11/13/16 11/14/16 11/16/16 07:16 17:11 12:23 Phosphorus Level 3.1 MG/DL Magnesium Level 2.0 MG/DL Prothrombin Time 11.7 SEC Prothromb Time International 1.1 RATIO Ratio Total Bilirubin 0.5 MG/DL Aspartate Amino Transf 49 U/L (AST/SGOT) Alanine Aminotransferase 60 U/L (ALT/SGPT) Alkaline Phosphatase 147 U/L Total Protein 7.3 GM/DL Albumin 3.2 GM/DL White Blood Count 11.8 TH/MM3 Red Blood Count 3.64 MIL/MM3 Hemoglobin 10.5 GM/DL Hematocrit 31.6 % Mean Corpuscular Volume 86.8 FL Mean Corpuscular Hemoglobin 28.9 PG Mean Corpuscular Hemoglobin 33.3 % Concent Red Cell Distribution Width 15.8 % Platelet Count 324 TH/MM3 Mean Platelet Volume 8.0 FL Neutrophils (%) (Auto) 75.1 % Lymphocytes (%) (Auto) 13.8 % Monocytes (%) (Auto) 8.3 % Eosinophils (%) (Auto) 2.5 % Basophils (%) (Auto) 0.3 % Neutrophils # (Auto) 8.9 TH/MM3 Lymphocytes # (Auto) 1.6 TH/MM3 Monocytes # (Auto) 1.0 TH/MM3 Eosinophils # (Auto) 0.3 TH/MM3 Basophils # (Auto) 0.0 TH/MM3 CBC Comment DIFF FINAL Differential Comment Sodium Level 141 MEQ/L Potassium Level 3.8 MEQ/L Chloride Level 107 MEQ/L Carbon Dioxide Level 26.8 MEQ/L Anion Gap 7 MEQ/L Blood Urea Nitrogen 13 MG/DL Creatinine 1.50 MG/DL Estimat Glomerular Filtration 48 ML/MIN Rate Random Glucose 101 MG/DL Calcium Level 8.1 MG/DL Radiology Last Impressions Chest X-Ray 11/14/16 0000 Signed Impressions: Service Date/Time: October 17:02 - CONCLUSION: No acute disease. Linda Jaime MD Abdomen X-Ray 11/13/16 0000 Signed Impressions: Service Date/Time: Sunday, November 13, 2016 14:10 - CONCLUSION: 1. Cholecystostomy tube appears in satisfactory position. Ramon Snow MD Abdomen/Pelvis CT 11/06/16 1702 Signed Impressions: Service Date/Time: Sunday, November 06, 2016 18:37 - CONCLUSION: 1. Dilated gallbladder with cholelithiasis and inflammatory changes likely acute cholecystitis. 2. Bibasilar densities likely atelectasis. Trey Watt MD Percutaneous Cholangiogram 11/06/16 0000 Signed Impressions: Service Date/Time: Sunday, November 06, 2016 20:58 - CONCLUSION: Uncomplicated percutaneous cholecystostomy as above. Eron Lawson MD Abdomen: Post-op tenderness A/P Problem List: (1) Acute cholecystitis without calculus Assessment and Plan 56-year-old gentleman status post cholecystectomy I Dr. Souza Patient to be discharged tomorrow Follow-up Dr. Souza 7-10 days Ankit Roberson MD Nov 17, 2016 22:09
[2016-11-18] VITALS: BP 147/89; PULSE 59; RESP 18; TEMP 98.4; O2SAT 96
[2016-11-18] MEDS: PIPERACIL-TAZO 3.375 GM PREMIX 50 ML IV SCH ×2 (00:47→08:34)
[2016-11-18 04:00] VITALS: BP 134/81; PULSE 60; RESP 16; TEMP 97.9; O2SAT 96
[2016-11-18] MEDS: CHLORHEXIDINE GLUCONATE 2 % 1 PACK (2 CLOTHS) TOP SCH (04:00)
[2016-11-18] MEDS: HEPARIN SODIUM - SQ 10,000 UNITS/ML VIAL SQ SCH ×2 (05:57→12:58)
[2016-11-18 08:00] VITALS: BP 134/79; PULSE 60; RESP 20; TEMP 97.5; O2SAT 96
[2016-11-18] MEDS: FAMOTIDINE 20 MG TAB PO SCH (08:35)
[2016-11-18] MEDS: SODIUM CHLORIDE 0.9% FLUSH 5 ML FLUSH IV FLUSH SCH (08:35)
[2016-11-18] MEDS: DOCUSATE SODIUM 50 MG/SENNA 8.6 MG TAB PO SCH (08:37)
[2016-11-18 09:18] VITALS: O2SAT 96
--- NOTE | 2016-11-18 11:13 | HHI.DCPOC ---
Discharge Care Plan Diagnosis: (1) Acute cholecystitis without calculus (2) Cholangitis (3) Hyperlipidemia (4) Hypertension (5) Mood swings (6) Seizure disorder Goals to Promote Your Health * To prevent worsening of your condition and complications * To maintain your health at the optimal level Directions to Meet Your Goals Take your medications as prescribed Follow your dietary instruction Follow activity as directed Keep your appointments as scheduled Take your immunizations and boosters as scheduled If your symptoms worsen call your PCP, if no PCP go to Urgent Care Center or Emergency Room Smoking is Dangerous to Your Health. Avoid second hand smoke Call the 24-hour hour crisis hotline for domestic abuse at Lazara Mejia MD Nov 18, 2016 11:13
--- NOTE | 2016-11-18 11:14 | HHI.DS ---
Discharge Summary Admission Date Nov 06, 2016 at 19:28 Discharge Date: Nov 18, 2016 Admitting Diagnosis sepsis/acute cholecystitis/cholangitis (1) Acute cholecystitis without calculus ICD Code: K81.0 (2) Cholangitis ICD Code: K83.0 (3) Hypertension ICD Code: I10 (4) Mood swings ICD Code: F39 Procedures Percutaneous cholecystostomy tube placement Laparoscopic cholecystectomy Brief History - From Admission This is a 56-year-old male who was brought in from the [facility] with right upper quadrant abdominal pain. He endorses this abdominal pain as crampy, worse with food. He denied nausea, vomiting, diarrhea, constipation, changes in stool. Fevers, chills, chest pain, shortness of breath. He is not had anything to eat since yesterday. He is slightly somnolent on my evaluation and a very poor historian so additional information is very difficult to obtain. He does have a CT abdomen and pelvis which demonstrates significant gallbladder thickening and concern for cholangitis. Dr. Souza was consulted and agreed with that assessment. IR has been consulted to place for percutaneous cholecystostomy tube. [facility] medicine is consulted to evaluate and manage his sepsis. CBC/BMP: 11/16/16 1223 11/16/16 1223 Significant Findings Laboratory Tests Test 11/16/16 12:23 White Blood Count 11.8 TH/MM3 (4.0-11.0) Red Blood Count 3.64 MIL/MM3 (4.50-5.90) Hemoglobin 10.5 GM/DL (13.0-17.0) Hematocrit 31.6 % (39.0-51.0) Neutrophils (%) (Auto) 75.1 % (16.0-70.0) Monocytes (%) (Auto) 8.3 % (0.0-8.0) Neutrophils # (Auto) 8.9 TH/MM3 (1.8-7.7) Monocytes # (Auto) 1.0 TH/MM3 (0-0.9) Creatinine 1.50 MG/DL (0.60-1.30) Estimat Glomerular Filtration 48 ML/MIN (>89) Rate Calcium Level 8.1 MG/DL (8.5-10.1) Imaging Last Impressions Chest X-Ray 11/14/16 0000 Signed Impressions: Service Date/Time: October 17:02 - CONCLUSION: No acute disease. Linda Jaime MD Abdomen X-Ray 11/13/16 0000 Signed Impressions: Service Date/Time: Sunday, November 13, 2016 14:10 - CONCLUSION: 1. Cholecystostomy tube appears in satisfactory position. Ramon Snow MD Abdomen/Pelvis CT 11/06/16 1702 Signed Impressions: Service Date/Time: Sunday, November 06, 2016 18:37 - CONCLUSION: 1. Dilated gallbladder with cholelithiasis and inflammatory changes likely acute cholecystitis. 2. Bibasilar densities likely atelectasis. Trey Watt MD Percutaneous Cholangiogram 11/06/16 0000 Signed Impressions: Service Date/Time: Sunday, November 06, 2016 20:58 - CONCLUSION: Uncomplicated percutaneous cholecystostomy as above. Eron Lawson MD PE at Discharge GENERAL: This is a well-nourished, well-developed patient, in no apparent distress. CARDIOVASCULAR: Normal rate and regular rhythm without murmurs, gallops, or rubs. RESPIRATORY: Good respiratory efforts. Breath sounds equal and clear to auscultation bilaterally. GASTROINTESTINAL: Abdomen soft, non-tender, there is a ANTONIO drain in place on the right side of the abdomen. MUSCULOSKELETAL: Extremities without cyanosis, or edema. NEURO: Alert & Oriented. Normal speech. Moves all ext x4 PSYCH: Appropriate mood and affect. Pt update on day of discharge Patient reports that he is feeling well. He is ready to go back home. Hospital Course 56 year old male admitted with cholangitis s/p cholecystostomy tube placement. Patient underwent laparoscopic cholecystectomy. Evaluation and treatment course detailed below: Cholangitis: - General surgery followed the patient. Initially the patient had a cholecystostomy drain placed by IR. He ultimately underwent cholecystectomy by general surgery. A ANTONIO drain was placed which was eventually removed. The patient was treated with Zosyn IV. He improved significantly until stable enough for discharge. Nonsustained V. tach: Asymptomatic. Patient evaluated by cardiology. Potassium slightly low, replaced. - Cardiology followed the patient. Patient was cleared for surgery. Moderate Cardiovascular risk. Chronic renal insufficiency: Stable. Avoid nephrotoxins. Pt Condition on Discharge: Good Discharge Disposition: [facility] Discharge Time: <= 30 minutes Discharge Instructions DIET: Follow Instructions for: Heart Healthy Diet Activities you can perform: Regular-No Restrictions Continued Medications: Allopurinol (Zyloprim) 100 Mg Tab 100 MG PO DAILY Gout #30 Ref 3 TAB Aspirin (Aspirin) 81 Mg Chew 81 MG CHEW DAILY Ref 0 TAB Bisacodyl Supp (Dulcolax Supp) 10 Mg Supp 10 MG RECTAL DAILY PRN CONSTIPATION #30 Ref 3 SUPP Citalopram (Celexa) 20 Mg Tab 20 MG PO DAILY Control Depression #30 Ref 3 TAB Cyanocobalamin (Vitamin B-12) 500 Mcg Tab 500 MCG PO DAILY Nutritional Supplement #30 Ref 3 BOTTLE Enalapril (Vasotec) 5 Mg Tab 5 MG PO DAILY #30 Ref 3 TAB Ferrous Sulfate (Ferrous Sulfate) 325 Mg Tab 325 MG PO DAILY Nutritional Supplement #30 Ref 3 TAB Levetiracetam (Keppra) 500 Mg Tab 500 MG PO BID Control Seizures #60 Ref 3 TAB Magnesium Oxide (Magox) 400 Mg Tab 400 MG PO DAILY Nutritional Supplement #30 Ref 3 TAB Metoprolol Tartrate (Lopressor) 50 Mg Tab 25 MG PO BID #30 Ref 3 TAB Pantoprazole (Protonix) 40 Mg Tab 40 MG PO DAILY Reflux #30 Ref 3 TAB Pravastatin (Pravastatin) 40 Mg Tab 40 MG PO DAILY Cholesterol Management #30 Ref 3 TAB Pyridoxine (Pyridoxine) 50 Mg Tab 50 MG PO DAILY Nutritional Supplement #30 Ref 3 TAB Sennosides-Docusate Sodium (Kimber-Colace) 8.6-50 Mg Tab 2 TAB PO BID Constipation #60 Ref 4 TAB Tramadol (Tramadol) 50 Mg Tab 50 MG PO Q4H PRN PAIN Ref 0 TAB Discontinued Medications: Nifedipine ER 24 HR (Procardia XL) 90 Mg Tab 90 MG PO DAILY #30 Ref 3 TAB Lazara Mejia MD Nov 18, 2016 11:14
[2016-11-18 12:00] VITALS: BP 134/78; PULSE 64; RESP 18; TEMP 98.2; O2SAT 97
--- NOTE | 2016-11-20 07:32 | MP ---
cc: CORAL PATEL M.D. DATE OF SURGERY: 11/14/2016 PROCEDURE Laparoscopic cholecystectomy. PREOPERATIVE DIAGNOSIS Acute cholecystitis. POSTOPERATIVE DIAGNOSIS Gangrenous cholecystitis. ANESTHESIA General endotracheal. SURGEON Harley JD EDWARDS DEVELOPER ANTHONY Strong ESTIMATED BLOOD LOSS 200 mL. FLUIDS 1800 mL crystalloid. COMPLICATIONS None. DRAINS ANTONIO x1. SPECIMEN Gallbladder and stones to pathology. FINDINGS Significant acute cholecystitis with gangrenous changes of the gallbladder. PROCEDURE IN DETAIL The EXPORT FREIGHT SPECIALIST was present from the beginning to the end of the case assisting in all portions of the procedure. It was necessary to have this individual in the room for appropriate retraction, dissection, visualization, and resection of the important anatomical structures. The skill set of the EXPORT FREIGHT SPECIALIST was medically and surgically necessary to safely complete the surgical procedure. The metallurgical technician was working the instrument table and passing instruments while the EXPORT FREIGHT SPECIALIST was actually assisting. The patient was placed on the operating table in a supine position. After an appropriate level of general endotracheal anesthesia was achieved, the abdomen was shaved, prepped and draped. A timeout was taken confirming the correct patient, site and procedure to be performed. The skin and subcutaneous tissue was infiltrated with local anesthetic and incision made through the umbilicus and carried through the fascia sharply. The peritoneal cavity was directly visualized and a 12 mm balloon trocar was inserted. The balloon was inflated and the abdomen insufflated. The patient was placed in reverse Trendelenburg position. Three 5 mm trocars were placed with the first in the upper midline and the second and third in the right subcostal region. All entered the abdominal cavity under direct vision uneventfully. The cholecystostomy tube was then removed and the omentum pulled back down from over the liver. The gallbladder was then grasped and retracted upward. This was accomplished after bluntly dissecting the omentum off of the gallbladder wall. The gallbladder was extremely inflamed and had gangrenous changes in the wall. As the gallbladder was retracted upwards the cystic duct infundibular junction was retracted somewhat lateral and the cystic duct infundibular junction was circumferentially dissected. This was doubly clipped distally, singly clipped on the gallbladder side and divided. A small artery was also doubly clipped proximally, singly clipped distally and divided as well. Further dissection revealed some bleeding along the lateral edge of the gallbladder wall. The cystic artery was identified at this point, doubly clipped proximally and singly clipped on the gallbladder side. Before dividing this further dissection was carried out on the gallbladder wall bilaterally to confirm that there were no more structures diving into the liver. With hemostasis achieved at this point the cystic artery was divided as it was coursing directly into the gallbladder. The gallbladder was then able to be dissected further off of the liver bed. At one point the gallbladder was entered and three stones tumbled out of the gallbladder. All bile was aspirated as well as bloody material. A small portion of the gallbladder wall at this time remained attached to the liver and this was dissected off with the Harmonic scalpel. When this had been completed the gallbladder was placed into an EndoCatch device and the gallstones were retrieved from the gallbladder fossa region and placed into the EndoCatch bag as well. The bag was closed and the gallbladder removed via the umbilical port site while observing via the upper 5 mm trocar site. The fascial defect was required to be opened further to allow for the gallbladder to be removed. This was then passed off the table. The upper abdomen was visualized via the umbilical port once again and bleeding on the liver bed was controlled with electrocautery. All irrigation was aspirated and further irrigation revealed no further bleeding. Insufflation was discontinued and the upper abdominal trocars were removed under direct vision after placing a Draryl-Almanzar drain in the liver bed. The dissected omentum and gallbladder bed were extremely raw and a drain was placed. This was brought out via the lateral most 5 mm trocar site and fixed to the skin with 3-0 nylon suture. The laparoscope and umbilical port were then removed and the fascia closed in the umbilicus with interrupted 0 Vicryl suture in a longitudinal fashion. The remaining local anesthetic was injected into the port sites as well as the umbilicus. The skin was closed at all port sites except for the drain site with 4-0 Vicryl in an interrupted buried fashion. The three trocar sites were dressed with Steri-Strips and a 4x4 dressed around the drain. The patient was extubated and taken back to the recovery room in stable condition. Sponge and needle counts were reported to be correct. MD HILARY Do/IGOR /4:28 PM /7:15 AM
[2017-01-15] MEDS ORDERED: METO-309 PO (09:20)
[2017-02-10] MEDS ORDERED: FERR325T PO (16:01)
[2017-03-12] MEDS ORDERED: ENAL5TAB98 PO (14:45)
[2017-03-12] MEDS ORDERED: MAGO400T PO (14:46)
[2017-03-12] MEDS ORDERED: PROT40TA PO (14:46)
[2017-03-25] MEDS ORDERED: ALLO100 PO (15:06)
== END 2016-11-18 16:00 | DRG 853 ==
LOC: NEPC 16:58 → NEDA 19:28 → NEDH 23:30 → HIME 11-07 07:22 → N04A 11-09 12:09
PROVIDERS: ADMIT Family Medicine; ATTEND Family Medicine
PROC: 0F9430Z Drainage of Gallbladder with Drainage Device, Percutaneous Approach (ICD-10-PCS; 2016-11-06)
PROC: BF121ZZ Fluoroscopy of Gallbladder using Low Osmolar Contrast (ICD-10-PCS; 2016-11-06)
PROC: 0FT44ZZ Resection of Gallbladder, Percutaneous Endoscopic Approach (ICD-10-PCS; principal; 2016-11-14 13:36)
DX: A41.9 Sepsis, unspecified organism (principal); G93.41 Metabolic encephalopathy; I47.2 Ventricular tachycardia; K83.0 Cholangitis; N17.9 Acute kidney failure, unspecified; K80.00 Calculus of gallbladder with acute cholecystitis without obstruction; I12.9 Hypertensive chronic kidney disease with stage 1 through stage 4 chronic kidney disease, or unspecified chronic kidney disease; N18.3 Chronic kidney disease, stage 3 (moderate); J98.11 Atelectasis; E72.11 Homocystinuria; I69.351 Hemiplegia and hemiparesis following cerebral infarction affecting right dominant side; I69.320 Aphasia following cerebral infarction; I69.398 Other sequelae of cerebral infarction; Z91.14 Patient's other noncompliance with medication regimen; K21.9 Gastro-esophageal reflux disease without esophagitis; E66.9 Obesity, unspecified; Z68.30 Body mass index [BMI] 30.0-30.9, adult; E86.1 Hypovolemia; R73.9 Hyperglycemia, unspecified; Z22.322 Carrier or suspected carrier of Methicillin resistant Staphylococcus aureus; F32.9 Major depressive disorder, single episode, unspecified; G40.909 Epilepsy, unspecified, not intractable, without status epilepticus; F43.20 Adjustment disorder, unspecified; F41.9 Anxiety disorder, unspecified; I87.2 Venous insufficiency (chronic) (peripheral); M79.606 Pain in leg, unspecified; K59.00 Constipation, unspecified; M62.838 Other muscle spasm; E87.6 Hypokalemia; E78.5 Hyperlipidemia, unspecified; E83.42 Hypomagnesemia; D64.9 Anemia, unspecified; R26.9 Unspecified abnormalities of gait and mobility; R41.89 Other symptoms and signs involving cognitive functions and awareness
CPT/HCPCS: 47490; 71010; 74000; 74176; 75989; 76937; 80048; 80053; 81001; 82948; 83605; 83690; 83735; 84100; 85007; 85014; 85018; 85025; 85027; 85610; 85730; 87040; 87641; 88304; 93005; 93306; 94150; 94640; 94664; 94667; 94668; 96361; 96374; 96375; 99152; 99153; C1729; C1894; J1170; J1644; J1956; J2250; J2270; J2370; J2405; J2543; J2710; J3010; J7030; J7120; J7121; J7613

== ENCOUNTER 2017-04-18 14:21 | Emergency (ER) | payer SELFPAY ==
[~2017-04-18] VITALS: Ht 180.3 cm; Wt 100.0 kg
[~2017-04-18 14:21] MED LIST changes: -PROC90TA PO; +TRAM50TA PO
[2017-04-18 14:34] VITALS: BP 137/78; PULSE 89; RESP 19; TEMP 98.1; O2SAT 97
--- NOTE | 2017-04-18 14:53 | PD ---
HPI Chief Complaint: Fall Time Seen by Provider: 14:48 Travel History International Travel<30 days: No Contact w/Intl Traveler<30days: No Traveled to known affect area: No History of Present Illness HPI 57-year-old male with history of dementia brought into the emergency department via EMS status post witnessed fall at local nursing facility. Patient states he lost balance and fell backwards hitting his head. He denies significant headache or loss of consciousness. Patient reported his back By EMS report from the nursing facility. Patient denies any other injury at this time. States his headaches about a 3 out of 10. He denies dizziness or nausea or vomiting. He has no drug allergies but has a history of MRSA. PFSH Past Medical History Hx Anticoagulant Therapy: No Autoimmune Disease: No Blood Disorders: No Anxiety: Yes Depression: Yes Heart Rhythm Problems: No Cancer: No Cardiovascular Problems: Yes High Cholesterol: Yes Chest Pain: No Congestive Heart Failure: No Cerebrovascular Accident: Yes (tia x 4, CVAX1, cerebral hemorrhage) Diabetes: No Diminished Hearing: No Endocrine: No Gastrointestinal Disorders: Yes GERD: Yes Genitourinary: Yes (CHRONIC RENAL INSUFF) Headaches: Yes Hepatitis: No Hiatal Hernia: No Hypertension: Yes (noncompliant with meds) Immune Disorder: No Implanted Vascular Access Dvce: No Kidney Stones: No Musculoskeletal: No Neurologic: Yes Psychiatric: Yes Reproductive: No Respiratory: No Immunizations Current: No Migraines: No Myocardial Infarction: No Renal Failure: No Seizures: Yes Sickle Cell Disease: No Thyroid Disease: No Ulcer: No PNEUMOCCOCAL Vaccine (Year): 2 Past Surgical History Abdominal Surgery: Yes (CHOLECYSTECTOMY) AICD: No Appendectomy: No Arteriovenous Shunt: No Cardiac Surgery: No Cholecystectomy: Yes Ear Surgery: No Endocrine Surgery: No Eye Surgery: No Genitourinary Surgery: No Insulin Pump: No Joint Replacement: No Neurologic Surgery: No Oral Surgery: No Pacemaker: No Thoracic Surgery: No Tonsillectomy: Yes Other Surgery: Yes (left wrist) Social History Alcohol Use: No Tobacco Use: No Substance Use: No Allergies-Medications (Allergen,Severity, Reaction): Coded Allergies: *MDRO Multi-Drug Resistant Organism (Verified Allergy, Unknown, 03/31/17) MRSA (back wound) 2009. Positive MRSA surveillance screen 01/2014. Negative MRSA surveillance screens 09/2014. MRSA PCR Screens negative - 04/07/15 & 11/07/16 CLEARED PER INFECTION CONTROL Reported Meds & Prescriptions Reported Meds & Active Scripts Active Zyloprim (Allopurinol) 100 Mg Tab 100 Mg PO DAILY Protonix (Pantoprazole Sodium) 40 Mg Tab 40 Mg PO DAILY Magox (Magnesium Oxide) 400 Mg Tab 400 Mg PO DAILY Vasotec (Enalapril Maleate) 5 Mg Tab 5 Mg PO DAILY Ferrous Sulfate 325 Mg Tab 325 Mg PO DAILY Lopressor (Metoprolol Tartrate) 50 Mg Tab 25 Mg PO BID Celexa (Citalopram Hydrobromide) 20 Mg Tab 20 Mg PO DAILY Dulcolax Supp (Bisacodyl) 10 Mg Supp 10 Mg RECTAL DAILY PRN Keppra (Levetiracetam) 500 Mg Tab 500 Mg PO BID Kimber-Colace (Sennosides-Docusate Sodium) 8.6-50 Mg Tab 2 Tab PO BID Pravastatin 40 Mg Tab 40 Mg PO DAILY Pyridoxine (Pyridoxine HCl) 50 Mg Tab 50 Mg PO DAILY Vitamin B-12 (Cyanocobalamin) 500 Mcg Tab 500 Mcg PO DAILY Reported Tramadol (Tramadol HCl) 50 Mg Tab 50 Mg PO Q4H PRN Aspirin 81 Mg Chew 81 Mg CHEW DAILY Review of Systems ROS Limitations: Poor Historian Except as stated in HPI: all other systems reviewed are Neg General / Constitutional: No: Fever Eyes: No: Visual changes HENT: No: Headaches Cardiovascular: No: Chest Pain or Discomfort Respiratory: No: Shortness of Breath Gastrointestinal: No: Abdominal Pain Genitourinary: No: Dysuria Musculoskeletal: No: Pain Skin: No Rash Neurologic: No: Weakness Psychiatric: No: Depression Endocrine: No: Polydipsia Hematologic/Lymphatic: No: Easy Bruising Physical Exam Narrative GENERAL: Patient appears in mild distress. SKIN: Warm and dry. Normal color. Normal turgor. Patient has very small 1 cm laceration to the right upper occipital region with localized mild swelling and ecchymosis HEAD: Normocephalic. Patient has mild tender area with central small laceration with bleeding controlled upon arrival. EYES: Pupils equal and round. No scleral icterus. No injection or drainage. ENT: No nasal bleeding or discharge. Mucous membranes pink and moist. No dental injury. Airway is patent. NECK: Trachea midline. No bony tenderness or step-off. Range of motion is full without tenderness. C-spine is cleared utilizing nexus criteria. CARDIOVASCULAR: Regular rate and rhythm. RESPIRATORY: No accessory muscle use. Clear to auscultation. Breath sounds equal bilaterally. MUSCULOSKELETAL: Extremities without clubbing, cyanosis, or edema. No obvious deformities. NEUROLOGICAL: Awake and alert. No obvious cranial nerve deficits. Motor grossly within normal limits. Five out of 5 muscle strength in the arms and legs. Normal speech. PSYCHIATRIC: Appropriate mood and affect; insight and judgment normal. Data Data Last Documented VS Vital Signs Date Time Temp Pulse Resp B/P Pulse Ox O2 Delivery O2 Flow Rate FiO2 04/18/17 15:40 75 18 99 04/18/17 14:34 98.1 04/18/17 14:[address] Brain W/O Iv Contrast(Rout) (04/18/17 14:48) [facility] Medical Decision Making Medical Screen Exam Complete: Yes Emergency Medical Condition: Yes Medical Record Reviewed: Yes Differential Diagnosis Loss of balance. Fall. Head wound. Possible intracranial bleed. Narrative Course Patient is medically stable at time of exam. Laceration was repaired with [address] of the head is ordered. Patient is discussed with Dr. Marion. CT of the head is negative per radiologist. Patient to be returned to the nursing facility came from. Patient can use ice to the injured area as well as Tylenol as needed. Patient follow with his primary care physician as needed. Diagnosis Primary Impression: Fall Qualified Code: W19.XXXA - Fall, initial encounter Additional Impressions: Head contusion Qualified Code: S00.03XA - Contusion of scalp, initial encounter Occipital scalp laceration Qualified Code: S01.01XA - Occipital scalp laceration, initial encounter Additional Instructions: CT of the head is negative per radiologist. Patient to be returned to the nursing facility came from. Patient can use ice to the injured area as well as Tylenol as needed. Juan to be removed in 1 week. Patient follow with his primary care physician as needed. Disposition: 01 DISCHARGE HOME Condition: Stable Donavon Guajardo Apr 18, 2017 14:53
--- NOTE | 2017-04-18 15:06 | PD ---
Data Data Last Documented VS Vital Signs Date Time Temp Pulse Resp B/P Pulse Ox O2 Delivery O2 Flow Rate FiO2 04/18/17 14:34 98.1 89 19 137/[address] Brain W/O Iv Contrast(Rout) (04/18/17 14:48) MDM Supervised Visit with JENNIFER: Yes Narrative Course I, Dr. Ocampo, have reviewed the advance practice practioner's documentation and am in agreement, met with the patient face to face, made the diagnosis, and the medical decision making was done by me. *My assessment and Findings: 57-year-old male with dementia here with witnessed fall with head injury. Scalp laceration on exam. Nonfocal neuro exam and reportedly baseline per EMS. We'll obtain head CT to rule out skull fracture, ICH and disposition back to his facility if unremarkable. Disposition: 01 DISCHARGE HOME Condition: Stable Naheed Ocampo MD Apr 18, 2017 15:06
[2017-04-18 15:40] VITALS: PULSE 75; RESP 18; O2SAT 99
--- NOTE | 2017-04-18 15:54 | RADRPT ---
EXAM DATE/TIME: 04/18/2017 15:12 [facility] COMPARISON: CT BRAIN W/O CONTRAST, October 19, 2016, 12:05. INDICATIONS : Trauma to the head with laceration today. RADIATION DOSE: 42.73 CTDIvol (mGy) MEDICAL HISTORY : Cerebrovascular disease. Seizures. Hypertension. Renal insufficiency SURGICAL HISTORY : Cholecystectomy. ENCOUNTER: Initial ACUITY: 1 day PAIN SCALE: 2/10 LOCATION: Cranial TECHNIQUE: Multiple contiguous axial images were obtained of the head. Using automated exposure control and adj ustment of the mA and/or kV according to patient size, radiation dose was kept as low as reasonably a chievable to obtain optimal diagnostic quality images. DICOM format image data is available electro nically for review and comparison. FINDINGS: No acute hemorrhage, acute infarct, mass effect or extra-axial fluid collections are noted. Moderate to severe periventricular and subcortical white matter small vessel ischemic changes are noted bilat erally and are stable. Old infarcts are again noted within the temporal lobes and left posterior par ietal lobe. Scattered old lacunar infarcts are noted within the bilateral basal ganglia. Diffuse cer ebral atrophy is noted. CONCLUSION: 1. No significant change compared to 10/19/2016. 2. Moderate to severe periventricular and subcortical white matter small vessel ischemic changes bila terally. 3. Old infarcts involving the bilateral temporal lobes and left posterior parietal lobes. 4. Diffuse cerebral atrophy. 5. No acute hemorrhage, acute infarct, mass effect or extra-axial fluid collections. 6. Multiple old lacunar infarcts within the bilateral basal ganglia. Leo Hartman MD on April 18, 2017 at 15:41 Board Certified Radiologist. This report was verified electronically.
[2017-04-24] MEDS ORDERED: PYRI50TA PO (16:27)
[2017-04-24] MEDS ORDERED: CELE20TA PO (16:27)
[2017-04-24] MEDS ORDERED: LEVE500 PO (16:30)
[2017-04-25] MEDS ORDERED: PRAV40TA2 PO (09:54)
== END 2017-04-18 16:35 | disposition home or self-care (01) ==
LOC: NEPD 14:21
DX: S01.01XA Laceration without foreign body of scalp, initial encounter (principal); S00.03XA Contusion of scalp, initial encounter; F03.90 Unspecified dementia, unspecified severity, without behavioral disturbance, psychotic disturbance, mood disturbance, and anxiety; E78.00 Pure hypercholesterolemia, unspecified; K21.9 Gastro-esophageal reflux disease without esophagitis; I10 Essential (primary) hypertension; Z86.73 Personal history of transient ischemic attack (TIA), and cerebral infarction without residual deficits; W18.30XA Fall on same level, unspecified, initial encounter; Y92.129 Unspecified place in nursing home as the place of occurrence of the external cause
CPT/HCPCS: 70450

== ENCOUNTER 2017-07-27 17:49 | Emergency (ER) | payer SELFPAY ==
[~2017-07-27] VITALS: Ht 180.3 cm; Wt 98.0 kg
[~2017-07-27 17:49] MED LIST changes: +MAGN400T2 PO
[2017-07-27 17:54] VITALS: BP 133/72; PULSE 61; RESP 16; TEMP 98.6; O2SAT 98
--- NOTE | 2017-07-27 18:42 | PD ---
HPI Chief Complaint: Fall Time Seen by Provider: 17:56 Travel History International Travel<30 days: No Contact w/Intl Traveler<30days: No Traveled to known affect area: No History of Present Illness HPI This patient has chronic dementia and is wheelchair bound and lives in an [facility]. He toppled forward out of his wheelchair today and landed on his knees. His history is a bit sketchy given his dementia but he is having no symptoms at all. He denies any pain now. He has no headache or neck pain. His knees are not bothering him. Symptoms severity is mild. Duration one day. PFSH Past Medical History Hx Anticoagulant Therapy: No Arthritis: Yes Autoimmune Disease: No Blood Disorders: No Anxiety: Yes Depression: Yes Heart Rhythm Problems: No Cancer: No Cardiovascular Problems: Yes (HTN) High Cholesterol: Yes Chest Pain: No Congestive Heart Failure: No Cerebrovascular Accident: Yes (tia x 4, CVAX1, cerebral hemorrhage) Diabetes: No Diminished Hearing: No Endocrine: No Gastrointestinal Disorders: Yes GERD: Yes Genitourinary: Yes (CHRONIC RENAL INSUFF) Headaches: Yes Hepatitis: No Hiatal Hernia: No Hypertension: Yes (noncompliant with meds) Immune Disorder: No Implanted Vascular Access Dvce: No Kidney Stones: No Musculoskeletal: No Neurologic: Yes Psychiatric: Yes Reproductive: No Respiratory: No Immunizations Current: No Migraines: No Myocardial Infarction: No Renal Failure: No Seizures: Yes Sickle Cell Disease: No Thyroid Disease: No Ulcer: No PNEUMOCCOCAL Vaccine (Year): 2 Past Surgical History Abdominal Surgery: Yes AICD: No Appendectomy: No Arteriovenous Shunt: No Cardiac Surgery: No Cholecystectomy: Yes Ear Surgery: No Endocrine Surgery: No Eye Surgery: No Genitourinary Surgery: No Insulin Pump: No Joint Replacement: No Neurologic Surgery: No Oral Surgery: No Pacemaker: No Thoracic Surgery: No Tonsillectomy: Yes Other Surgery: Yes (left wrist) Social History Alcohol Use: No Tobacco Use: No Substance Use: No Allergies-Medications (Allergen,Severity, Reaction): Coded Allergies: *MDRO Multi-Drug Resistant Organism (Verified Allergy, Unknown, 03/31/17) MRSA (back wound) 2009. Positive MRSA surveillance screen 01/2014. Negative MRSA surveillance screens 09/2014. MRSA PCR Screens negative - 04/07/15 & 11/07/16 CLEARED PER INFECTION CONTROL Reported Meds & Prescriptions Reported Meds & Active Scripts Active Magnesium Oxide 400 Mg Tab 400 Mg PO DAILY Pravastatin 40 Mg Tab 40 Mg PO DAILY Keppra (Levetiracetam) 500 Mg Tab 500 Mg PO BID Pyridoxine (Pyridoxine HCl) 50 Mg Tab 50 Mg PO DAILY Celexa (Citalopram Hydrobromide) 20 Mg Tab 20 Mg PO DAILY Zyloprim (Allopurinol) 100 Mg Tab 100 Mg PO DAILY Protonix (Pantoprazole Sodium) 40 Mg Tab 40 Mg PO DAILY Vasotec (Enalapril Maleate) 5 Mg Tab 5 Mg PO DAILY Lopressor (Metoprolol Tartrate) 50 Mg Tab 25 Mg PO BID Dulcolax Supp (Bisacodyl) 10 Mg Supp 10 Mg RECTAL DAILY PRN Magox (Magnesium Oxide) 400 Mg Tab 400 Mg PO DAILY Ferrous Sulfate 325 Mg Tab 325 Mg PO DAILY Kimber-Colace (Sennosides-Docusate Sodium) 8.6-50 Mg Tab 2 Tab PO BID Vitamin B-12 (Cyanocobalamin) 500 Mcg Tab 500 Mcg PO DAILY Reported Tramadol (Tramadol HCl) 50 Mg Tab 50 Mg PO Q4H PRN Aspirin 81 Mg Chew 81 Mg CHEW DAILY Review of Systems General / Constitutional: No: Fever HENT: No: Headaches Cardiovascular: No: Chest Pain or Discomfort Respiratory: No: Cough Gastrointestinal: No: Vomiting Physical Exam Narrative RESPIRATORY: Respiratory effort unlabored, no retractions or use of accessory muscles. Breath sounds are clear and symmetric. CARDIOVASCULAR: Regular rate and rhythm without murmur. Extremities showed no edema or varicosities. GASTROINTESTINAL: Abdomen soft, non-tender, nondistended. Positive bowel sounds. No hepato-splenomegaly, or palpable masses. No guarding. Legs: Scant bruising to both knees without tenderness or deformity. Decent range of motion. His legs are a bit stiff and contracted Data Data Last Documented VS Vital Signs Date Time Temp Pulse Resp B/P (MAP) Pulse Ox O2 Delivery O2 Flow Rate FiO2 07/27/17 17:54 98.6 61 16 133/72 (92) 98 MDM Medical Decision Making Medical Screen Exam Complete: Yes Emergency Medical Condition: Yes Medical Record Reviewed: Yes Differential Diagnosis Knee contusion, knee fracture, abrasion Narrative Course I have reviewed the patient's electronic medical record. Patient fell out of a wheelchair but has no complaints. He denies head injury or headache. He is asymptomatic. I don't see any indication for emergent studies here. He is stable to return back to the [facility] Diagnosis Primary Impression: Fall Qualified Codes: W19.XXXA - Unspecified fall, initial encounter Additional Impression: Contusion of right knee Qualified Codes: S80.01XA - Contusion of right knee, initial encounter Additional Instructions: The patient was advised to follow up with their physician and return if they worsen. Med/Other Pt SpecificInfo: Other Disposition: 01 DISCHARGE HOME Condition: Stable Kaiden Reveles MD Jul 27, 2017 18:42
[2017-07-27 20:13] VITALS: BP 143/84; PULSE 59; RESP 18; O2SAT 100
[2017-07-27 23:52] VITALS: BP 156/86; PULSE 57; RESP 18; O2SAT 100
[2017-07-28 11:42] VITALS: BP 148/88; TEMP 98.2
== END 2017-07-28 12:02 | disposition home or self-care (01) ==
LOC: NEPE 17:49 → NEPD 07-28 12:02
DX: S80.01XA Contusion of right knee, initial encounter (principal); S89.92XA Unspecified injury of left lower leg, initial encounter; F03.90 Unspecified dementia, unspecified severity, without behavioral disturbance, psychotic disturbance, mood disturbance, and anxiety; W08.XXXA Fall from other furniture, initial encounter; Y92.129 Unspecified place in nursing home as the place of occurrence of the external cause; Z99.3 Dependence on wheelchair
CPT/HCPCS: 99283